=== PATIENT | male | born 1955 | race Caucasian/White ===

== ENCOUNTER 2017-05-27 14:20 | Inpatient (IN) | payer MEDICARE, MEDICAID ==
[~2017-05-27] VITALS: Ht 182.9 cm; Wt 110.0 kg
[2017-05-27] VITALS (9 sets, daily range): BP systolic 78–136; BP diastolic 41–107; PULSE 81–96; RESP 16–19; O2SAT 95–100
[~2017-05-27 14:20] MED LIST: METO200T32 PO; ONDA-53 PO; VANC125C3 PO
--- NOTE | 2017-05-27 14:27 | ED.REPORT ---
HPI-General Illness Date of Service May 27, 2017 ED Provider: The patient is a 62 year old male with history of end stage renal disease on dialysis MWF, atrial fibrillation not on Coumadin, CHF, hypertension, pancreatitis, alcohol abuse, and pancytopenia, who was brought to the emergency by EMS after he had ground level fall prior to arrival. The patient was trying to move his wheelchair when he slid out and fell, landing on his right knee. He did not hit his head or lose consciousness. At this time he complains of severe right knee pain. Medics report the patient complained of severe neck pain for about 5 minutes en route to the ED, the patient denies any new neck pain. He denies chest pain, abdominal pain, head pain, fever, chills or vomiting. The patient had 2 alcoholic drinks earlier today. Nursing Notes Stated Complaint: HYPOTENSIVE Nursing Notes Reviewed: Yes Allergies: Coded Allergies: rosuvastatin (Verified Adverse Reaction, Mild, 05/27/17) "Makes my arms and legs weak. It makes me feel bad" Scheduled Metoprolol Succinate ER (Metoprolol Succinate ER) 50 Mg Tab.er.24h 150 MG PO DAILY General Time Seen by MD: 14:26 Chief Complaint Other (fall) Hx Obtained From: Patient, EMS Arrived By: Ambulance Sudden in Onset?: Yes Onset Occurred: Just prior to arrival Symptom Duration: Since onset Location: : Knee right Quality: Painful Severity: Current: Severe Severity: Maximum: Severe Recent Healthcare: No recent hospitalization Similar Sx Previous: No Past Medical History Past Medical History 1. End-stage renal disease, on dialysis, Thursday, Thursday, Thursday with Dr. Burden. 2. Atrial fibrillation, not on Coumadin. 3. Hypertension. 4. Neuropathy. 5. History of pancreatitis. 6. History of colon polyps. 7. Gout. 8. H/O ETOH abuse, admit 01/26/15 for ETOH withdrawal 9. chronic and recurrent C. Diff. colitis 07/2015 10. chronic pancytopenia 11. history of anemia 12. CHF Reports: Depression Past Surgical History AV fistula A bone cyst removal in 2013 right hip in situ cannulated screw pinning s/p hip fracture in Oct 2015 Reports: Tonsillectomy Smoking History Former Smoker Social History Alcohol Use: In recovery Other Social History: Local resident Ambulatory Status Wheelchair Review of Systems Full Review of Systems Constitutional: Denies: Chills, Fever Cardiovascular: Denies: Chest pain GI: Reports: Diarrhea (chronic), Denies: Abdominal pain, Vomiting Musculoskeletal: Reports: Joint pain, Denies: Back pain, Neck pain Neurologic: Denies: Change LOC, Headache, Syncope Complete sys rev & neg: except as marked. Physical Exam Vital Signs Vital Signs Date Time Temp Pulse Resp B/P Pulse Ox O2 Delivery O2 Flow Rate FiO2 05/27/17 17:15 83 18 78/50 98 Room Air 05/27/17 17:00 84 17 86/55 05/27/17 16:25 94 17 87/66 05/27/17 15:15 81 17 79/48 99 05/27/17 14:45 89 17 83/41 98 05/27/17 14:20 36.0 83 16 136/107 95 Room Air Initial VS: Reviewed Head / Eyes: Atraumatic, Normocephalic, PERRL ENT: Mucous membranes moist, Conjunctiva normal, No scleral icterus Neck: Supple, Non-tender, Full range of motion Respiratory: Breath sounds normal, Clear to auscultation, No respiratory distress Cardiovascular: Regular rate & rhythm, Heart sounds normal, Intact distal pulses Abdomen / GI: Soft, Non-tender, No guarding, No rebound, No distention Lymphatic: No lymphadenopathy Extremities: Vascular intact, Neuro intact Skin: Warm, Dry, No cyanosis Neurologic: Alert, Oriented, Nonfocal Psychiatric: Mood/affect normal, Behavior normal, Normal thought content General/Constitutional: Awake, Alert, Well appearing Lower Extremity / Pelvis / MS: Neurologic intact, Vascular intact Bruising over his anterior right knee. Tenderness to his right anterior knee. Rectum / Perineum: Atraumatic, Blood - occult heme -, pest control technician passed, No gross blood Interpretation & Diagnostics Lab Results Interpretation Result Diagram: 05/27/17 1545 05/27/17 1510 Test 05/27/17 15:10 05/27/17 15:45 White Blood Count 3.7th/mm3 (3.8-10.1) Red Blood Count 1.47mil/mm3 (4.40-5.80) Mean Corpuscular Volume 108.8fL (81-100) Mean Corpuscular Hemoglobin 35.4pg (27.0-35.0) Mean Corpuscular Hemoglobin Concent 32.5% (32.0-37.0) Red Cell Distribution Width 14.9% (12.3-15.4) Platelet Count 161bil/L (150-400) Neutrophils (%) (Auto) 51.9% (40-74) Lymphocytes (%) (Auto) 34.3% (14-46) Monocytes (%) (Auto) 11.7% (4-12) Eosinophils (%) (Auto) 1.1% (0-5) Basophils (%) (Auto) 0.5% (0-3) Sodium Level 134mEq/L (134-144) Potassium Level 3.4mEq/L (3.5-5.2) Chloride Level 91mEq/L (97-108) Carbon Dioxide Level 22mmol/L (18-29) Blood Urea Nitrogen 25mg/dL (8-27) Creatinine 6.93mg/dL (0.76-1.27) Estimat Glomerular Filtration Rate 9mL/min (>59) Glucose Level 113mg/dL (60-99) Lactic Acid Level 6.3mmol/L (0.4-2.0) Calcium Level 8.1mg/dL (8.5-10.1) Magnesium Level 1.9mg/dL (1.6-2.6) Total Bilirubin 0.2mg/dL (0.0-1.2) Aspartate Amino Transf (AST/SGOT) 25U/L (0-50) Alanine Aminotransferase (ALT/SGPT) 12U/L (0-44) Alkaline Phosphatase 82U/L (25-160) Total Protein 6.7g/dL (6.4-8.4) Albumin 3.0g/dL (3.4-5.0) Alcohols 355mg/dL (0-10) Hemoglobin 7.4g/dL (13.8-17.2) Hematocrit 23.5% (41.0-50.0) Hold Purple Top Tube Received (Received) Hold Blue Top Tube Received (Received) Troponin T 0.187ug/L (0.0-0.011) Hold [place] Top Tube Received (Received) Hold [place] Top Tube Received (Received) ECG Interpretation ECG Interpretation: Atrial fibrillation with a rate of [address] T changes Time: 14:35 Interpreted by: ED physician X-Ray Chest Interpretation Chest Xray Interpretation: IMPRESSION: 1. Mild pleural thickening laterally in the left lung base redemonstrated with evaluation limited due to patient's overlying hand. 2. No definite acute traumatic abnormality. Dictated by: Ruddy Aguirre M.D. on 05/27/2017 at 15:06 Interpretation / Wet Read by: Interpret - Radiologist X-Ray Interpretation Xray Interpretation: IMPRESSION: 1. Probable minimally displaced fracture in the medial femoral condyle. 2. Small to moderate joint effusion. Dictated by: Ruddy Aguirre M.D. on 05/27/2017 at 14:59 X-Ray Ordered: Knee right Interpretation / Wet Read by: Interpret - Radiologist CT Head Interpretation IMPRESSION: 1. No acute intracranial hemorrhage. 2. Chronic small vessel ischemic changes and parenchymal volume loss. Dictated by: Ramiro Chavez M.D. on 05/27/2017 at 14:47 Study: Head CT no contrast Interpretation / Wet Read by: Interpret - Radiologist CT Abd / Pelvis Interpretation IMPRESSION: 1. Mild periportal edema. This is a nonspecific finding and can be associated with congestive heart failure and acute hepatitis. Please correlate clinically. 2. Cholelithiasis. No findings to suggest choledocholithiasis or acute cholecystitis. 3. Probable prior appendectomy. Dictated by: Georgia Armendariz M.D. on 05/27/2017 at 16:29 Study type: Abdominal CT IV contrast Interpretation / Wet Read by: Interpret - Radiologist Procedures Central Line Placement Central Line Placement Note: Right ultrasound guided IJ Procedure Performed by: ED physician Consent / Setup / Site Prep: Informed consent provided, Consent from patient , Time-out performed, Pulse oximeter applied, vehicle monitor technician applied, Standard surgical scrub, Max barrier precaution, Sterile drapes applied, Position Trendelenburg Skin Preparation Agent: Hibiclens - Chlorhexidine Local Anesthesia: Lidocaine w epi 1% Side / Location / Ultrasound: Internal jugular right Catheter / Lumen / Technique: Triple lumen, Seldinger technique Central Line Tip Location: Cath tip good position in the SVC Post-Procedure / Complications: Dressing placed, Tolerated procedure well, Patient stable Re-Eval/Medical Decision Med Decision/Clinical Course 62-year-old male history of end-stage renal disease on Thursday dialysis. Pt presents s/p groundlevel fall onto R knee. Hypotensive in field. Hypotensive in ED with MAPs in low 50s. Improved to low/mid 60s with 750mLs total IVFs. Lactate 6. Troponins elevated possibly d/t ESRD. CXR clear. Pt anuric and refused i/ocath. BAL 300s. CT no acute pathology. Chronic diarrhea. CT head no acute pathology. Admitted with sepsis unknown source, lactic acidosis, etoh intoxication, altered mental status. Admitted to ICU given hypotension. Central line placed. Broad spectrum abx given - vanco/zosyn/doxy. Source of Hx: Old records, EMS Time of Eval: 15:55 Re-Evaluation/Progress Note: Rechecked the patient. Time of Eval: 16:47 Re-Evaluation/Progress Note: Discussed plan for admission. All questions were addressed. Consultation #1: Consulted With: Hospitalist Requested Call at: 17:00 Cinder Pitman: Will see patient, Agrees with eval, Agrees with plan, Accepts admit Consultation #2: Referral / Consult Name: Gene Fajardo DO Consulted With: Orthopedic Call Returned at: 17:14 Cinder Pitman: Agrees with eval, Agrees with plan Note: Recommends long knee immobilizer. Counseled Regarding: Diagnosis, Lab results, Need for admission Discharge & Departure Primary Impression: Sepsis Sepsis type: sepsis due to unspecified organism Qualified Code: A41.9 - Sepsis, unspecified organism Additional Impressions: Fall Encounter type: initial encounter Qualified Code: W19.XXXA - Unspecified fall, initial encounter Fracture of medial condyle of femur Encounter type: initial encounter Fracture type: closed Fracture alignment : nondisplaced Laterality: right Qualified Code: S72.434A - Nondisplaced fracture of medial condyle of right femur, initial encounter for closed fracture Altered mental status Altered mental status type: unspecified Qualified Code: R41.82 - Altered mental status, unspecified Disposition: ADMITTED TO HOSPITAL Discharge Condition All VS Reviewed: Yes Condition: Stable Referrals: Spike Mckeon DO (PCP) Crit Care Except Billable Proc Time Spent: 75-104 minutes Services Performed: Patient management by me, Time spent at bedside, Reviewing test results, Reviewing imaging, Discussing patient care, Documentation in record Scribe Attestation Portions of this note were transcribed by Lydia Manuel. I, Dr. Zhu personally performed the history, physical exam and medical decision-making; I reviewed and confirmed the accuracy of the information in the transcribed note. Signed by: Ronaldo Young, 05/27/2017 at 1800. copies to: Spike Mckeon Ben M MD May 27, 2017 14:27 Lydia Manuel May 27, 2017 14:35
--- NOTE | 2017-05-27 15:08 | DRSVH ---
PROCEDURE: X-RAY RIGHT KNEE, THREE VIEWS ([id number]) INDICATIONS: fall TECHNIQUE: 3 views of the knee were acquired. COMPARISON: None. FINDINGS: Bones: There is diffuse osteopenia limiting evaluation. There is a lucency within the medial femora l condyle with suggestion of a cortical step-off suspicious for a relatively nondisplaced fracture. Soft tissues: There is a small to moderate-sized joint effusion. IMPRESSION: 1. Probable minimally displaced fracture in the medial femoral condyle. 2. Small to moderate joint effusion. Dictated by: Ruddy Aguirre M.D. on 05/27/2017 at 14:59 Approved by: Ruddy Aguirre M.D. on 05/27/2017 at 15:06
--- NOTE | 2017-05-27 15:10 | DRSVH ---
PROCEDURE: X-RAY CHEST ONE VIEW, PORTABLE ([id number]) INDICATIONS: fall TECHNIQUE: One view of the chest was acquired. COMPARISON: [facility], CR, XR CHEST 1VW (PORTABLE), 08/13/2016, 21:52. FINDINGS: Surgical changes and devices: None. Lungs and pleura: The lateral left lung base is partially obscured by patient's overlying hand. No definite pleural effusions or pneumothorax. There is mild pleural thickening in the lateral left jennifer g base redemonstrated. Mediastinum: Mediastinal contours appear normal. Heart size is borderline enlarged. Bones and chest wall: No suspicious bony lesions. No displaced fractures identified. Overlying sof t tissues appear unremarkable. IMPRESSION: 1. Mild pleural thickening laterally in the left lung base redemonstrated with evaluation limited du e to patient's overlying hand. 2. No definite acute traumatic abnormality. Dictated by: Ruddy Aguirre M.D. on 05/27/2017 at 15:06 Approved by: Ruddy Aguirre M.D. on 05/27/2017 at 15:09
[2017-05-27 15:32] LABS: BASOPHILS % (AUTO) 0.5 % (0-3); EOSINOPHILS % (AUTO) 1.1 % (0-5); MONOCYTES % (AUTO) 11.7 % (4-12); Mean Corpuscular Hemoglobin 35.4 pg (27.0-35.0); Mean Corpuscular Volume 108.8 fL (81-100); NEUTROPHILS % (AUTO) 51.9 % (40-74); Platelet Count 161 bil/L (150-400)
[2017-05-27] MEDS ORDERED: 0.9% Sodium Chloride 250 ML IV ONE ×3 (15:40→22:20)
[2017-05-27 15:51] LABS: Magnesium 1.9 mg/dL (1.6-2.6)
--- NOTE | 2017-05-27 15:51 | DRSVH ---
PROCEDURE: CT BRAIN WITHOUT CONTRAST ([id number]) INDICATIONS: altered mental status TECHNIQUE: Noncontrast 4.5 mm thick angled axial sections acquired from the foramen magnum to the vertex, with c oronal reformats. COMPARISON: [facility], CT, CT BRAIN WO CON, 08/13/2016, 22:43. FINDINGS: Image quality: Diagnostic. Brain: There is no acute intra-axial or extra-axial hemorrhage. No extra-axial fluid collection is i dentified. There is no midline shift or mass effect. The orbits are grossly unremarkable. No large areas of diffusely decreased attenuation are evident within the brain to suggest diffuse cer ebral edema. Scattered areas of low-attenuation within the periventricular white matter of the supra tentorial brain have a similar pattern to the prior study. The ventricles and cortical sulci are mildly prominent. Bones: Calvarium and visualized facial bones are grossly intact. The imaged paranasal sinuses and m astoid air cells are clear. IMPRESSION: 1. No acute intracranial hemorrhage. 2. Chronic small vessel ischemic changes and parenchymal volume loss. Dictated by: Ramiro Chavez M.D. on 05/27/2017 at 14:47 Approved by: Ramiro Chavez M.D. on 05/27/2017 at 14:49
[2017-05-27] MEDS ORDERED: METO-272 PO (16:38)
--- NOTE | 2017-05-27 16:40 | DRSVH ---
PROCEDURE: CT ABDOMEN AND PELVIS WITH CONTRAST ([id number]) INDICATIONS: abd pain TECHNIQUE: After the administration of intravenous contrast, 5 mm thick sections acquired from the diaphragm to the symphysis. 5 mm coronal and sagittal reformats were acquired. For radiation dose reduction, the following was used: automated exposure control, adjustment of mA and/or kV according to patient laz paul. COMPARISON: [facility], CT, CT CHEST ABD PELVIS W CON, 08/18/2015, 10:50. FINDINGS: Image quality: Excellent. ABDOMEN: Lung bases: Mild pulmonary scarring is present at the left lung base. The lungs are otherwise clear. Heart size is enlarged. Solid organs: Liver and spleen are normal in size and enhancement. There is mild periportal edema. M ultiple subcentimeter calcified gallstones are layered in the gallbladder fundus. No gallbladder wall thickening or pericholecystic fluid. Biliary system is non dilated. Pancreas enhances normally. No adrenal nodules. 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 Peritoneum and bowel: Bowel loops demonstrate normal wall thickness and caliber. The appendix is not visualized; however surgical clips are present in the region of the cecum in the lower quadrant sugg esting prior appendectomy. No free fluid or air. Nodes and vessels: No retroperitoneal or mesenteric adenopathy by size criteria. Aorta and inferior vena cava are normal in size. There are scattered atheromatous calcifications throughout the aorta and iliac arteries bilaterally. Miscellaneous: No ventral hernias. PELVIS: Genitourinary: Bladder is decompressed. Miscellaneous: No inguinal adenopathy. There is a small fat containing right inguinal hernia. Mild s tranding overlies the left inguinal canal. Bones: No suspicious bony lesions. No vertebral body compression fractures. Right hip arthroplasty is grossly intact. IMPRESSION: 1. Mild periportal edema. This is a nonspecific finding and can be associated with congestive heart f ailure and acute hepatitis. Please correlate clinically. 2. Cholelithiasis. No findings to suggest choledocholithiasis or acute cholecystitis. 3. Probable prior appendectomy. Dictated by: Georgia Armendariz M.D. on 05/27/2017 at 16:29 Approved by: Georgia Armendariz M.D. on 05/27/2017 at 16:38
[2017-05-27] MEDS ORDERED: Tobramycin per Pharmacist XX ONE (16:45)
[2017-05-27] MEDS ORDERED: Piperacillin-Tazo 3.375 Gm Inj 3.375 GM in Dextrose 5% Minibag Plus 50 ML IV ONE (16:45)
[2017-05-27] MEDS ORDERED: Vancomycin Dose per Pharmacist XX ONE (16:45)
[2017-05-27] MEDS ORDERED: Doxycycline Inj 100 MG in Dextrose 5% 100 ML IV ONE (16:45)
[2017-05-27 16:54] LABS: TROPONIN T 0.187 ug/L (0.0-0.011)
[2017-05-27] MEDS ORDERED: Ondansetron 2 mg/mL 2 mL Inj IVPUSH PRN (18:25)
--- NOTE | 2017-05-27 18:36 | PCM.HPMED ---
Subjective Date of Service May 27, 2017 Primary Provider: Admitting Physician: Arsh Flannery MD Primary Care Physician: Spike Mckeon DO Attending Physician: Arsh Flannery MD Admit Status: From the Emergency Department, Full Admit, Admit to [facility] Team, Critical Care Chief Complaint: Fall, syncopal episode. Right knee pain. History of Present Illness: This is a 62-year-old woman with known history of end-stage renal disease. He was due for dialysis today. He had a witnessed fall which may have been syncopal at which time his caregiver called 911. He was found to be hypotensive and was fluid resuscitated with 250 mg saline. He was brought to the emergency department. There he complained really only of feeling flulike symptoms for 2 days as well as having right knee pain. X-ray did reveal a right knee femoral condyle fracture and a splint was applied. The patient was afebrile but did have a profound lactic acidosis. He had a mild leukopenia as well. Chest x-ray and CT were unremarkable. He does have chronic diarrhea. He denies fevers or chills. He also denies dyspnea and had normal saturations and respiratory effort. He was treated empirically for possible sepsis with an unclear source. The patient does have a left arm fistula which has been used for several years. He has had a map of 55 in the ED after a second bolus of 250 mils of saline. At this point a right IJ is going to be placed in the emergency physician under ultrasound guidance. He denies any confusion. He does have alcohol on his breath andhaving 2 drinks today. He is unclear as to how much he drinks on a daily basis but denies withdrawal symptoms. Blood alcohol level is 355. Review of Systems: He notes myalgias and general fatigue. He denies hallucinations or confusion. No headache. He denies neck or back pain. He does make a small amount of urine but denies any dysuria or hematuria. No skin rash or lesions. No blood in the stool. All else reviewed and otherwise unremarkable except as noted in history of present illness. Allergies Coded Allergies: rosuvastatin (Verified Adverse Reaction, Mild, 05/27/17) "Makes my arms and legs weak. It makes me feel bad" Home Medications Metoprolol Succinate ER (Metoprolol Succinate ER) 50 Mg Tab.er.24h 150 MG PO DAILY PMH 1. End-stage renal disease, on dialysis, Thursday, Thursday, Thursday with Dr. Burden. 2. Chronic Atrial fibrillation, not on Coumadin. 3. Essential Hypertension. 4. Peripheral diabetic Neuropathy. 5. History of pancreatitis. 6. History of colon polyps. 7. Gout. 8. ETOH abuse, admit 01/26/15 for ETOH withdrawal 9. chronic and recurrent C. Diff. colitis 07/2015 10. chronic pancytopenia 11. history of anemia 12. CHF, unspecified. 13. Depression Surgical History AV fistula A bone cyst removal in 2013 right hip in situ cannulated screw pinning s/p hip fracture in Oct 2015 Reports: Tonsillectomy Family History Unremarkable per his report including diabetes Social History Occupation: non- Hx Alcohol Use: Yes ("2 SINGLE SHOTS OF VODKA TODAY".) Hx Substance Use: No Hx Tobacco Use: No Smoking Status: Former Smoker Living Arrangement: Alone Exam Vital Signs Vital Sign - Last Date Time Temp Pulse Resp B/P Pulse Ox O2 Delivery O2 Flow Rate FiO2 05/27/17 17:15 83 18 78/50 98 Room Air 05/27/17 14:20 36.0 Exam Oriented 3. No distress. Fluent speech. Normal affect. I will call him broth. Normal skull. Normal nose and ears. Anicteric sclera, symmetric pupils Oropharynx is unremarkable, no facial droop. Neck is supple, normal thyroid. No adenopathy. Lungs are clear, normal effort rate. Heart is regular without murmur gallop or rub. Abdomen soft, nondistended or tender. Extremities are free of pedal edema. Left arm fistula Good radial and pedal pulses. Skin is free of rash, lesions. No petechiae or ecchymosis. Joints are grossly normal. Right knee is somewhat swollen and tender medially. Cranial nerves are grossly normal. Motor strength is normal in all extremities. Normal muscular tone. Lab and Diagnostics Result Diagram: 05/27/17 1545 05/27/17 1510 X-Rays, CTs and MRIs Chest x-ray unremarkable Abdomen pelvis CT unremarkable Head CT unremarkable. Right knee x-ray reveals a probable medial femoral condyle nondisplaced fracture with a knee effusion Assessment & Plan Sepsis, source unclear. Suspect a possible cystitis or pyelonephritis. POA. Plan is to fluid resuscitated with saline boluses to 250 mils a time for a map greater than 65. Have obtained IV access with a right IJ. We will use norepinephrine as required. We will swab garcía rule out MRSA and cover with empiric cefepime and vancomycin. Lactic acidosis, POA. We will follow his lactic acidosis serially and give fluid resuscitation guided by map. Alcohol intoxication, POA. The patient is at high risk for alcohol withdrawal, will enact CIWA protocol. End-stage renal disease, POA. The patient was due for dialysis today, he has no hyperkalemia or fluid overload. We will plan on dialysis tomorrow. We will also watch fluid resuscitation. Closely to avoid fluid overload. Probable chronic anemia related to kidney disease, POA. His initial hematocrit was low but a repeat was at 25. We will follow with a.m. hematocrit. He was guaiac negative in the emergency department. Hypertension, POA. Follow clinically resume usual medications after med reconciliation is obtained. Patient is full resuscitation, confirmed the time of admit Patient is admitted inpatient status, length of stay of over 2 nights is expected Pain Evaluation: Adequate Pain Control Resuscitation Status: CPR: Attempt Resuscitation Time spent 45 minutes critical care time Arsh Flannery MD May 27, 2017 18:36
--- NOTE | 2017-05-27 19:34 | DRSVH ---
PROCEDURE: X-RAY CHEST ONE VIEW ([id number]) INDICATIONS: CENTRAL LINE PLACEMENT TECHNIQUE: One view of the chest was acquired. COMPARISON: [facility], CR, XR CHEST 1VW (PORTABLE), 05/27/2017, 14:34. FINDINGS: Surgical changes and devices: There is a right internal jugular central venous catheter with the tip projecting in the upper SVC. Lungs and pleura: No pleural effusions or pneumothorax. No focal consolidation. Diffuse interstitial and ground glass opacities, probably scarring Mediastinum: Mediastinal contours appear normal. Heart size is normal. Bones and chest wall: No suspicious bony lesions. Overlying soft tissues appear unremarkable. IMPRESSION: Status post placement of right internal jugular central venous catheter with the tip proj ecting in the upper SVC. No pneumothorax. Dictated by: Arnie Avila M.D. on 05/27/2017 at 19:31 Approved by: Arnie Avila M.D. on 05/27/2017 at 19:32
[2017-05-27] MEDS: Vancomycin Dose per Pharmacist XX SCH (19:52)
--- NOTE | 2017-05-27 20:01 | PCM.CONPHA ---
Assessment/Plan Assessment/Plan Pharmacy Kinetic Dosing Vancomycin Indication: SEPSIS OF UNKNOWN CAUSE Vanc goal trough: 15-20mcg/mL Pt wt:114.4 kg Other ABX: CEFEPIME Cultures: Blood/MRSA PENDING SCr: 6.93mg/dL Assessment/Plan: - Loading dose of [id number] mg given in ED for (18mg/kg dosing) -SHOULD BE RECEIVING DIALYSIS TOMORROW 05/28/17 SO WILL DRAW A RANDOM TROUGH LEVEL @0500 AND FLOOR PHARMACIST WILL DOSE APPROPRIATE AFTER SESSION. Pharmacy appreciates consult and will continue to monitor. Sandee Nelson PharmD May 27, 2017 20:01
[2017-05-27] MEDS ORDERED: Insulin Human REGular Inj 100 UNIT in 0.9% Sodium Chloride-Pha MIX 100 ML IV SCH (20:23)
[2017-05-27 20:24] LABS: APPEARANCE,URINE CLEAR (CLEAR,HAZY); COLOR,URINE YELLOW (YELLOW); OCCULT BLOOD,URINE SMALL (NEGATIVE); PH,URINE 6.5 (5.0-8.0); UROBILINOGEN,URINE NORMAL (NORMAL)
[2017-05-27] MEDS: Multivit-Miner-Folic Acid-Iron Tablet PO SCH ×2 (20:28→20:44)
[2017-05-27] MEDS: Lactated Ringer's 1,000 ML IV SCH ×2 (20:29→20:41)
[2017-05-27] MEDS: 0.9% Sodium Chloride 1,000 ML IV SCH (20:32)
[2017-05-27] MEDS: Cefepime Inj 1,000 MG in Dextrose 5% Minibag Plus 50 ML IV SCH (20:41)
[2017-05-27] MEDS ORDERED: Norepineph 8,000 mCg/250 mL NS 8,000 MCG in IV Premix 1 EACH IV SCH (20:53)
[2017-05-27] MEDS ORDERED: OMEP20CA11 PO (21:15)
[2017-05-27] MEDS ORDERED: FOLI1TAB18 PO (21:15)
[2017-05-27] MEDS ORDERED: FRSM80T PO (21:15)
--- NOTE | 2017-05-27 22:27 | NUR ---
Admission to CCU Pt admitted to room 2011 from ER at change of shift (1914). Pt angry upon arrival to floor stating right knee pain. Pt transferred to new bed from [facility] with 3 persons and a slider board. Admission assessments completed by prior RN/admission RN. Med Rec completed by this RN with assistance from [employer] and the patient being able to verify a few medications. Pt confused. Pt states he was already admitted to the hospital yesterday and was asking why he was being moved. Pt alert to self and place. Pt denies alcohol use today but acknowledges 2 shots of vodka yesterday to celebrate the 26 of May. ETOH level positive in ER. Doxycycline and Vancomycin infusing concurrently into right AC IV. Right triple IJ catheter saline locked. Central Line adhered with dressing and tape but device was not secured in Stat Lock but was underneath the dressing with the tubes running through it. MD made aware. IV therapy not presently at the hospital. Resident MD secured line in stat lock and secured above the dressing. Message left for IV therapy. Pt has hives and redness locally to Right AC IV site where both antibiotics were infusing. MD made aware. Dose of IV Benadryl administered per MD order. MRSA swab collected along with In-and-Out catheter for urine specimen. Bladder drained of 150ml of urine. Blood sugar checked resulting value of 402. MD made aware and NDKA insulin gtt ordered. Order subsequently DC'ed as upon recheck from CVC that blood sugar was 127 and then 117 upon washing the patient's hands and rechecking a finger stick. Pt smells strongly of alcohol. Left upper arm Fistula has strong thrill and bruit. NS bolus of 250ml x2 administered to maintain MAP>65. Norepinephrine gtt on standby for subsequent hypotension.
[2017-05-28] VITALS (7 sets, daily range): BP systolic 105–130; BP diastolic 63–85; PULSE 88–123; RESP 18–23; O2SAT 94–100
[2017-05-28] MEDS ORDERED: Vancomycin Serum Trough XX ONE (05:00)
[2017-05-28] MEDS: Lactated Ringer's 1,000 ML IV SCH ×3 (05:11→21:03)
[2017-05-28 06:25] LABS: BASOPHILS % (AUTO) 0.5 % (0-3); EOSINOPHILS % (AUTO) 0.5 % (0-5); MONOCYTES % (AUTO) 11.3 % (4-12); Mean Corpuscular Hemoglobin 33.6 pg (27.0-35.0); Mean Corpuscular Volume 104.5 fL (81-100); NEUTROPHILS % (AUTO) 61.9 % (40-74); Platelet Count 85 bil/L (150-400)
[2017-05-28 06:49] LABS: Magnesium 1.6 mg/dL (1.6-2.6); Phosphorus 5.3 mg/dL (2.5-4.9)
[2017-05-28] MEDS: Cefepime Inj 1,000 MG in Dextrose 5% Minibag Plus 50 ML IV SCH (08:21)
[2017-05-28] MEDS: Multivit-Miner-Folic Acid-Iron Tablet PO SCH (08:42)
[2017-05-28] MEDS: Famotidine Inj 20 MG in IV Premix 1 EACH IV SCH (08:42)
[2017-05-28] MEDS: Vancomycin Dose per Pharmacist XX SCH (08:43)
[2017-05-28] MEDS ORDERED: Sodium Chloride LOK Flush 10 mL Syringe IVFLUSH PRN ×2 (09:50)
--- NOTE | 2017-05-28 10:18 | PCM.PHAPRO ---
Progress Date of Service: May 28, 2017 Vancomycin dosing Scr = 7.47, pt on dialysis. WBC = 3.6, lactic acid = 4.8, procal = 0.65, vanco random level = 23.3. Pt continues on IV vancomycin and cefepime for sepsis, possible urinary source. Predialysis vancomycin random level elevated above 20 mcg/mL today, therefore will not give any IV vancomycin dose today. Pt having HD today. Next HD session uncertain, ordered vancomycin random level with am labs daily x 3 days. Next IV vancomycin dose to be given when pre-dialysis level drops below 20mcg/ mL. Pharmacy will follow this pt's vancomycin therapy. Melinda Serna S PharmD May 28, 2017 10:18
[2017-05-28] MEDS: Thiamine Inj 200 MG in Dextrose 5% 50 ML IV SCH (10:35)
--- NOTE | 2017-05-28 11:42 | DRSVH ---
[facility] [address] [place] [address] Echocardiogram Report Name: HUGO GIRALDO MStudy Date : 05/28/2017 Height: 72 in Hospital Exam Location: [facility] Weight: 25 3 lb Gender: Male BSA: 2.4 m2 : 1955 Age: 62 yrs BP: 102/64 mmHg Reason For Study: SEPSIS, ANEMIA History: end-stage renal disease, chronic afib, HTN, ETOH abuse Ordering Physician: ABDELRAHMAN [facility] Performed By: Megan Collins Referring Physician: Raudel Mares Interpretation Summary Left ventricular size is at the upper limits of normal. The ejection fraction is estimated to be 60-65%. LV wall motion is grossly normal. LVEF has not changed significantly since prior study. The right ventricle is borderline dilated. Grossly normal systolic function. The right ventricular systolic pressure is estimated at least 36 mmHg assuming a right atrial pressure of 15 mm Hg. RVSP is similar to prior study. Both atria are severely dilated. There is no significant valvular heart disease. Both MR and TR have decreased since prior study. The ascending aorta is mildly enlarged. Procedure: A two-dimensional transthoracic echocardiogram with color flow and Doppler was performed. The study quality was technically adequate. A contrast injection of Definity was performed to improve assessment of LV function. Comparison is made with the echocardiogram of 10/26/2015. The patient was in atrial fibrillation with heart rates between 110-132 bpm during the exam. Left Ventricle: Left ventricular size is at the upper limits of normal. There is normal left ventricular wall thickness. There is no thrombus. Left ventricular systolic function is normal. The ejection fraction is estimated to be 60-65%. LV wall motion is grossly normal. Diastolic function could not be accurately assessed due to atrial fibrillation. Right Ventricle: The right ventricle is borderline dilated. Grossly normal systolic function. Atria: Both atria are severely dilated. There is no Doppler evidence for an interatrial shunt. Mitral Valve: There is mild to moderate mitral annular calcification. There is trace mitral regurgitation. Aortic Valve: The aortic valve is normal in structure and function. The aortic valve is slightly calcified. No aortic regurgitation is present. Tricuspid Valve: The tricuspid valve is normal in structure and function. There is a trace or physiologic amount of tricuspid regurgitation. The right ventricular systolic pressure is estimated at least 36 mmHg assuming a right atrial pressure of 15 mm Hg. Pulmonic Valve: The pulmonic valve is not well seen, but is grossly normal. There is no significant valvular heart disease. Great Vessels: The aortic root is normal size. The ascending aorta is mildly enlarged. The IVC is dilated (diameter is greater than 2.1 cm) and it collapses less than 50% with a sniff. This suggests a high right atrial pressure of 15 mm Hg. Pericardium/ Pleura There is no pericardial effusion. There is an anterior echo-free space consistent with a fat pad. MMode/2D Measurements & Calculations LVIDd: 5.8 cm LA dimension: 4.1 cm RA long axis LVOT diam LVIDs: 3.8 cm FS: 35.0 % LA A2 area: 34.9 cm RA area AoV Opening EPSS: 0.71 cm LA A4 area: 36.0 cm IVSd: 0.83 cm LA length (vol): 7.6 cm: 30.0 cm Ao root diam LVPWd: 1.0 cm LA vol: 140.3 ml RA vol LA vol index : 109.ml Aortic Jxn RA : 46.4 mm2 asc Aorta IVC diam: 2.4 cm Diam: 3.6 cm LV dewitt. diameter/BSA LV sys. diameter/BSA TAPSE: 2.1 cm (cm/m^2): 2.5 (cm/m^2): 1.6 Doppler Measurements & Calculations Ao V2 max MV E max lukas Med Peak E' Lukas TR max lukas : 173.1 cm/sec : 118.6 cm/sec : 229.3 cm/sec Ao max P.0 mmHg E/E' med: 11.1 TR max PG Ao mean P.3 mmHg MVA(VTI): 3.5 cm2 Lat Peak E' Lukas : 21.0 mmHg LVOT Max Lukas PA V2 max : 93.4 cm/sec E/E' lat: 10.7 : 119.5 cm/sec E/e' average PA mean PG JEAN CARLOS(I,D): 1.9 cm sev ratio: 0.58 PA Accel Time : 0.10 sec MV V2 mean Ao V2 mean LV V1 max PG PA V2 mean : 73.3 cm/sec : 117.4 cm/sec : 76.2 cm/sec MV mean P.5 mmHg Ao V2 VTI: 27.8 cmLV V1 VTI: 16.0 cm MV V2 VTI: 15.2 cm MV dec time: 0.14 sec JEAN CARLOS(V,D): 1.8 cm2 JEAN CARLOS indexed to BSA (cm^2/m^2): 0.82 Reading Physician:SANTIAGO
--- NOTE | 2017-05-28 12:55 | CONS ---
[address] [address] CONSULTATION REPORT PATIENT: HUGO GIRALDO : 1955 MR#: [id number] ADMIT: 05/27/2017 JOB ID: [id number] NEPHROLOGY CONSULTATION: DATE OF SERVICE: 05/28/2017 REQUESTING PHYSICIAN: Arsh Flannery MD REASON FOR CONSULTATION: Management of end-stage renal disease. CHIEF COMPLAINT: Status post fall. PRESENT ILLNESS: This is a 62-year-old, male with significant past medical history of end-stage renal disease, alcohol abuse, hypertension, chronic atrial fibrillation, who was brought to the emergency department after episode of syncope and ground level fall. The patient was trying to move his wheelchair when he slipped and fell. Apparently he landed on the right knee. The patient did not have any head injury. He reported to me that he likely passed out. However, per the emergency department note, he stated that he did not lose consciousness. In any case, the patient was brought to the emergency department for further investigation. Of note, the patient earlier had two drinks prior to the admission earlier this morning prior to the day of the admission. He missed dialysis yesterday. Upon arrival, his blood pressure was 78/50. He received normal saline bolus. Septic workup was done. He was also started on broad-spectrum IV antibiotics including vancomycin, cefepime, doxycycline and Zosyn. CT abdomen and pelvis showed mild periportal edema and cholelithiasis. CT head did not show any acute intracranial hemorrhage. X-ray did not comment on the obvious lung infiltrates but showed mild pleural thickening laterally in the left lung base. Initial alcohol level was 355 mg/dL. He is a patient of Dr. Burden. He is dialyzed at [facility] in [place], every Thursday, Thursday, and Thursday. Renal service was consulted to resume dialysis while he is hospitalized. PAST MEDICAL HISTORY: 1. End-stage renal disease, on hemodialysis for almost two years. He has left AV fistula. 2. Chronic atrial fibrillation. 3. Hypertension with hypertensive nephrosclerosis. 4. Hyperkalemia. 5. Alcohol abuse. 6. Recurrent C. diff colitis. 7. Gout. 8. Right femoral hip fracture. 9. Morbid obesity. 10. Pancytopenia. 11. Anemia of chronic kidney disease. 12. Renal osteodystrophy. 13. Dyslipidemia. PAST SURGICAL HISTORY: 1. Status post AV fistula creation. 2. Hip fracture, status post ORIF. 3. Tonsillectomy. 4. Bone cyst removal. FAMILY HISTORY: Positive for type 2 diabetes, colon cancer, coronary artery disease, and dyslipidemia. SOCIAL HISTORY: He is a remote smoker. Denies any substance abuse. However he has history of alcohol abuse with history of alcohol withdrawal. ALLERGIES: ROSUVASTATIN. MEDICATIONS: Reviewed. REVIEW OF SYSTEMS: Fourteen point review of system was performed. PHYSICAL EXAMINATION: Vitals: Temperature 37.1, pulse 120, respiratory 21, blood pressure 115/74. General appearance: Awake, alert, oriented x3. In no acute distress. HEENT: Atraumatic. Moist mucous membranes. PERRLA. No pallor. No jaundice. No JVD. No lymphadenopathy. No thyroid enlargement. Heart: Regular rhythm. Normal S1, S2. No rubs or gallops. No murmur. Lungs: Decreased breath sounds at bases. No wheezing. No rhonchi. Abdomen: Soft, obese, active bowel sounds. Nontender. Nondistended. Extremities: No edema, cyanosis or clubbing of fingers. Left AV fistula with good thrill and bruit. Skin no rash. No excoriation. LABORATORY DATA: Hemoglobin 7.5, WBC 3.6, platelets 85. Sodium 136, potassium 4.5, chloride 94, bicarb 20, BUN 34, creatinine 7.47. Lactate of 4.8, calcium 7.6, phosphorus 5.3, troponin 0.193, procalcitonin 0.65. ASSESSMENT: 1. Hypotension, suspected sepsis. 2. Status post fall and possible syncope. 3. Alcohol intoxication. 4. Lactic acidosis. 5. End-stage renal disease, on hemodialysis every Thursday, Thursday, and Thursday. 6. History of alcohol abuse. 7. Pancytopenia possibly related to chronic liver disease. 8. Chronic atrial fibrillation. Not on anticoagulant. 9. History of hypertension with hypertensive nephrosclerosis. PLAN: 1. Pending for finalized cultures. Continue broad-spectrum IV antibiotics. 2. We will arrange for hemodialysis today of 3-1/2 hours. Given hypotension, we will not remove any fluid today. His next dialysis will be done again tomorrow. Thank you for allowing me to participate in the care of your patient. We will monitor along with you. EUGENIED
--- NOTE | 2017-05-28 14:02 | NUR ---
Social Work: Initial Assessment D: Per EMR review, pt is a 62 year old male admitted for Sepsis, Anemia. Pt is Medicare with DSHS supplement; pt has no LTC insurance or VA benefits. PCP is Spike Mckeon. Morgan Perez, son, is NOK. Advanced directives completed- PASSENGER ELEVATOR OPERATOR requested copy for chart. Readmit score is high, 3/8. PASSENGER ELEVATOR OPERATOR met with the patient at bedside. Sw role explained and contact info provided. Pt lives in [place], alone. Pt lives on the main level of a two story home with 0 steps to enter. Pt uses a wheelchair for mobility and is I with his own transfers. Pt occasionally uses a walker for ambulation in the community when he cannot take his w/c. Pt has 104 hours of [employer] who assist him iwth meal prep, shopping and cleaning/chores. Pt has had [facility] in the past but is not currently open for services. Pt also had a stay at [facility] for rehab in the past. Pt anticipates discharging back home when medically stable and states he will need [facility] transportation home. Pt states he arrived via EMS and has used his transportation benefit in the past. A: Pt who lives at home, alone. P: Evolving; Anticipate pt to discharge home. PASSENGER ELEVATOR OPERATOR will continue to follow to assess for d/c needs and coordinate discharge referrals as ordered by . AYESHA Newton Addendum: 05/28/17 at 1408 by BEBE SALVADOR Amended: Links added.
--- NOTE | 2017-05-28 14:10 | PCM.PNMED ---
Subjective Date of Service May 28, 2017 Subjective Felix Perez is a 62 year old man with past medical history significant for ESRD on HD MWF who presented from dialysis due to hypotension and syncopal episode. Overnight: The patient had a notably elevated blood glucose and was briefly placed on an insulin drip. Today: The patient is complaining about pain in his knee as well as hunger. He denies any fevers, chills, or shortness of breath. The remainder of ROS is negative except as noted above. Exam Vital Signs Vital Sign - Last Date Time Temp Pulse Resp B/P Pulse Ox O2 Delivery O2 Flow Rate FiO2 05/28/17 08:40 121 05/28/17 08:00 37.1 21 115/74 97 Room Air Intake and Output 05/27/17 05/27/17 05/28/17 Cumulative From/Thru 15:00 23:00 07:00 05/27/17 14:20 - 05/28/17 06:28 Intake Total 808 ml 2141 ml 2949 ml Output Total 120 ml 250 ml 370 ml Balance 688 ml 1891 ml 2579 ml Intake Oral 0 ml 0 ml IV Total 808 ml 1841 ml 2649 ml Packed Cells 300 ml 300 ml Output Urine Total 120 ml 250 ml 370 ml # Bowel Movements 0 0 0 Exam Oriented 3. No distress. Fluent speech. Normal affect. Normal skull. Normal nose and ears. Anicteric sclera, symmetric pupils. Oropharynx is unremarkable, no facial droop. Neck is supple, normal thyroid. No adenopathy. Lungs are clear, normal effort rate. Heart is regular without murmur gallop or rub. Abdomen soft, nondistended or tender. Extremities are free of pedal edema. Left arm fistula Good radial and pedal pulses. Skin is free of rash, lesions. No petechiae or ecchymosis. Joints are grossly normal. Right knee is somewhat swollen and tender medially. Cranial nerves are grossly normal. Motor strength is normal in all extremities. Normal muscular tone. Aggravated. IVs and Medications Medications Reviewed: Medications were reviewed in detail Lab and Diagnostics Result Diagram: 05/28/17 0600 05/28/17 0600 X-Rays, CTs and MRIs Chest x-ray unremarkable Abdomen pelvis CT unremarkable Head CT unremarkable. Right knee x-ray reveals a probable medial femoral condyle nondisplaced fracture with a knee effusion Assessment & Plan Felix Perez is a 62 year old man with past medical history significant for ESRD on HD MWF who presented from dialysis due to hypotension and syncopal episode. Hypotension, unlikely to be truly septic. Present on admission, resolved. No obvious source identified. -Fluid resuscitated. NE titrated off. Will continue antibiotics for now. Lactic acidosis, POA. -We will follow his lactic acidosis serially with fluid resuscitation guided by map. Alcohol intoxication, POA. -The patient is at high risk for alcohol withdrawal. CIWA protocol, cognizant of renal failure. End-stage renal disease, POA. -Dr. David consulted. Dialysis tomorrow. Probable chronic anemia related to kidney disease, POA. -His initial hematocrit was low but a repeat was at 25. Will follow hematocrit. -He was guaiac negative in the emergency department. Hypertension, POA. -Follow clinically resume usual medications when appropriate. Patient is full resuscitation, confirmed the time of admit Disposition: Anticipate patient will be in the hospital for 1-2 more days. VTE Mechanical Devices: Intermittant Pneumatic CD Resuscitation Status: CPR: Attempt Resuscitation Attending Statement Patient seen and examined with house staff. Agree with all attached documentation. Shanel Gomez DO May 28, 2017 13:14 Arsh Flannery MD May 28, 2017 17:07
[2017-05-28] MEDS: 0.9% Sodium Chloride 1,000 ML IV SCH ×2 (14:23→22:28)
--- NOTE | 2017-05-28 14:39 | NUR ---
Pain.. Pt had numerous complaints re hunger, being NPO, and R knee pain. Seen by MD and diet ordered. Pt did have nausea while eating. Zofran given and this was effective. No emesis noted. Med with Morphine for knee pain and this brought his pain from a 9 down to painfree. Pt remains in afib.. rates 113 - 120's..MD aware. Taken to [facility] for dialysis. [facility] in [facility] notified that client in an inpt.
--- NOTE | 2017-05-28 18:08 | NUR ---
Dialysis note: 3 1/2 hrs tx Zero net UF TYRONE fistula, accessed w/ no problems Pls see DTR for VS details Qb 400 Heparin given O2 @ 2L via NC on Last hr of tx, PRN Morphine 2 mg IV given for pain Tolerated tx, slept at intervals Fistula needle sites clotted w/in 10 min Stable condition at end of tx Report given to Aileen CHACKO
--- NOTE | 2017-05-28 18:10 | NUR ---
MOC Report While being dialyzed, pt. reported that he had pain to his right leg, rated 9/10. Pt. was given 2mg IV morphine with good relief. IV Abx. was completed, primarily line re-started to infuse NS at 50ml/hr per orders. Last set of vitals and pt. status reported back to primary RN, Shelli Coronel.
--- NOTE | 2017-05-28 18:41 | NUR ---
Patient returned from MOC to [facility] room 2011 post dialysis.
[2017-05-28] MEDS ORDERED: Cefepime Inj 1,000 MG in Dextrose 5% Minibag Plus 50 ML IV SCH (20:30)
[2017-05-29] VITALS (8 sets, daily range): BP systolic 110–136; BP diastolic 75–87; PULSE 95–110; RESP 16–20; O2SAT 96–100
[2017-05-29] MEDS: HYDROcodone-APAP 5-325 mg Tablet PO PRN ×4 (02:45→23:40)
[2017-05-29] MEDS: Lactated Ringer's 1,000 ML IV SCH ×2 (03:43→10:23)
--- NOTE | 2017-05-29 05:54 | NUR ---
PAIN/MOBILITY A/O x3, remained on bedrest r/t to knee pain. Given 975mg Tylenol, without relief, order received/given for Hydrocodone 5/325mg. Indicates pain free, with exception of movement. Tele: AFib 90's - 110. VSS.
[2017-05-29] MEDS ORDERED: Vancomycin Inj 750 MG in 0.9% Sodium Chloride 250 ML IV ONE (08:10)
[2017-05-29] MEDS: Thiamine Inj 200 MG in Dextrose 5% 50 ML IV SCH (08:28)
[2017-05-29] MEDS: Famotidine Inj 20 MG in IV Premix 1 EACH IV SCH (08:29)
[2017-05-29] MEDS: Multivit-Miner-Folic Acid-Iron Tablet PO SCH (08:29)
[2017-05-29 08:49] LABS: BASOPHILS % (AUTO) 0.4 % (0-3); EOSINOPHILS % (AUTO) 2.2 % (0-5); MONOCYTES % (AUTO) 10.3 % (4-12); Mean Corpuscular Hemoglobin 33.6 pg (27.0-35.0); Mean Corpuscular Volume 107.1 fL (81-100); NEUTROPHILS % (AUTO) 56.3 % (40-74); Platelet Count 72 bil/L (150-400)
[2017-05-29] MEDS: Vancomycin Dose per Pharmacist XX SCH (10:46)
--- NOTE | 2017-05-29 11:15 | PCM.PNMED ---
Subjective Date of Service May 29, 2017 Subjective Overnight: no acute event. Today: The patient is complaining about pain in his knee, but it does not bother him much when he does not move. He denies any fevers, chills, shortness of breath, CP, nausea, vomiting, dizziness, or headache. Exam Vital Signs Vital Sign - Last Date Time Temp Pulse Resp B/P Pulse Ox O2 Delivery O2 Flow Rate FiO2 05/29/17 05:28 95 05/29/17 04:00 36.8 16 121/76 97 05/28/17 22:44 Room Air Intake and Output 05/28/17 05/28/17 05/29/17 Cumulative From/Thru 15:00 23:00 07:00 05/27/17 14:20 - 05/29/17 06:46 Intake Total 970 ml 547 ml 4466 ml Output Total 0 ml 300 ml 0 ml 670 ml Balance 0 ml 670 ml 547 ml 3796 ml Intake Oral 120 ml 200 ml 320 ml IV Total 850 ml 347 ml 3846 ml Packed Cells 300 ml Output Urine Total 300 ml 0 ml 670 ml Ultrafiltrate 0 ml 0 ml # Bowel Movements 0 Exam General: Obese, Oriented 2 (Pt states he does not care about the date). No distress. Fluent speech. Normal affect. HEENT: Normal skull. Normal nose and ears. Anicteric sclera, symmetric pupils. Oropharynx is unremarkable, no facial droop. Neck: supple, normal thyroid. No adenopathy. Lungs: are clear, normal effort rate. Heart: Irregular irregular, tachycardia without murmur, gallop, or rub. Abdomen: soft, nondistended or tender. Normoactive bowel sound. Extremities: free of pedal edema. Right knee tender to palpation with mild joint effusion. No erythema or deformity. Left arm fistula. Good radial and pedal pulses. Skin: free of rash, lesions. No petechiae or ecchymosis. Neuro: Cranial nerves are grossly normal. Motor strength is normal in all extremities. Normal muscular tone. IVs and Medications Medications Reviewed: Medications were reviewed in detail Lab and Diagnostics Result Diagram: 05/28/17 0600 05/28/17 0600 X-Rays, CTs and MRIs Chest x-ray unremarkable Abdomen pelvis CT unremarkable Head CT unremarkable. Right knee x-ray reveals a probable medial femoral condyle nondisplaced fracture with a knee effusion Cardiac Echo Impressions Interpretation Summary Left ventricular size is at the upper limits of normal. The ejection fraction is estimated to be 60-65%. LV wall motion is grossly normal. LVEF has not changed significantly since prior study. The right ventricle is borderline dilated. Grossly normal systolic function. The right ventricular systolic pressure is estimated at least 36 mmHg assuming a right atrial pressure of 15 mm Hg. RVSP is similar to prior study. Both atria are severely dilated. There is no significant valvular heart disease. Both MR and TR have decreased since prior study. The ascending aorta is mildly enlarged. Assessment & Plan Felix Perez is a 62 year old man with past medical history significant for ESRD on HD MWF who presented from dialysis due to hypotension and syncopal episode. Chronic Atrial Fibrillation, not on anticoagulation, active. - Rate has been in 100-130s. Resume Metoprolol XL 150mg daily. - CHADS2-VAS score of 2, but patient is not a candidate for anticoagulation due to alcoholism and high risk for falls. - Telemetry Sepsis, source unclear. POA. Resolved. - Suspect a possible cystitis or pyelonephritis but urine culture is negative. - Patient received empiric Cefepime and Vanco for 2 days. - No signs or symptoms of infections. Therefore will D/C antibiotics today. - D/C IVF. BP has been stable and map remains greater than 65. Lactic acidosis, POA, resolved. Probably right knee femoral condyle fracture, POA, active. - Orthopedics was consulted in the ED, but patient has not been seen. - Dr. Gardner was contacted and recommend a CT of the knee, which confirms the fracture as above. - Recommend nonweightbearing right lower extremity - Pain control with hydrocodone 5-10mg PRN - Nonweightbearing with the immobilizer and follow up in orthopedic clinic in 1- 2 weeks for follow-up as outpatient. - Keep the affected extremity elevated when possible. Alcohol intoxication, POA, resolved. - Alcohol level of 355 on admission. - The patient is at high risk for alcohol withdrawal, will enact CIWA protocol. - No signs or symptoms of withdrawal so far. - Continue Thiamine End-stage renal disease, POA. - The patient was due for dialysis today. We will also watch fluid resuscitation. Closely to avoid fluid overload. Hypokalemia and hypomagnesemia, new, active. - Replete during dialysis today. - Continue to monitor electrolytes. Probable chronic anemia related to kidney disease, POA, stable. - His initial hematocrit was low but a repeat was at 25. - We will follow with a.m. hematocrit. - He was guaiac negative in the emergency department. Hypertension, POA. - Follow clinically - resume Metoprolol ER 150mg daily. Patient is full resuscitation, confirmed the time of admit Patient is admitted inpatient status, length of stay of over 2 nights is expected Pain Evaluation: Adequate Pain Control GI Prophylaxis: H2 angela VTE Mechanical Devices: Intermittant Pneumatic CD Resuscitation Status: CPR: Attempt Resuscitation Attending Statement The patient was seen and examined with staff. Agree with all attached documentation. Angie Barker DO May 29, 2017 07:47 Arsh Flannery MD May 29, 2017 17:49
--- NOTE | 2017-05-29 12:30 | NUR ---
Pt arrived to [facility]: Pt arrived to [facility] for dialysis treatment. Pt arrived from [facility] for right knee. Pt appears stable at time of arrival. Report given by Rosina Estrada RN. [facility] aware of tem room change. Addendum: 05/29/17 at 1645 by REENA WILKS RN Pt completed treatment and may return to [facility] room 2011. Report given to Rosina Estrada RN. [facility] aware of transfer. Pt appears stable at time of transfer.
--- NOTE | 2017-05-29 12:31 | PCM.CONORT ---
Subjective Surgeon Admitting Provider:Arsh Flannery MD Attending Provider:Arsh Flannery MD Primary Care Physician:Spike Mckeon DO Other Provider: Reason for Consultation: Right knee pain status post fall Allergy Allergies: Coded Allergies: rosuvastatin (Verified Adverse Reaction, Mild, 05/27/17) "Makes my arms and legs weak. It makes me feel bad" Medications Folic Acid (Folic Acid) 1 Mg Tablet 1 MG PO DAILY (Reported) Last Taken: UNKNOWN on Unknown Date & Time Furosemide (Furosemide) 80 Mg Tab 80 MG PO (Reported) Last Taken: UNKNOWN on Unknown Date & Time Metoprolol Succinate ER ( Metoprolol Succinate ER) 50 Mg Tab.er.24h 150 MG PO DAILY (Reported) Last Taken: Unknown Dose on 05/25/17 Omeprazole (Omeprazole) 20 Mg Capsule.dr 20 MG PO MORNING (Reported) Last Taken: UNKNOWN on Unknown Date & Time Discontinued Medications Metoprolol Succinate ER (Metoprolol Succinate ER) 200 Mg Tab.er.24h 200 MG PO DAILY (Reported) Ondansetron (Ondansetron) 4 Mg Tablet 4 MG PO Q6H PRN PRN For Nausea/Vomiting ( Reported) Vancomycin (Vancomycin) 125 Mg Capsule 125 MG PO Q6 Prescribed by: EDGARD CORRIGAN, History History of ENT Problems?: No HEENT History: Denies:: Cataracts Dysphagia Glaucoma Sinus Problem Denture Type: None Teeth Condition: Within Normal Limits Hx of Heart Problems?: Yes Cardiovascular History: Positive for:: Atrial Fibrillation Edema Hypertension Irregular Heartbeat (A-fib) Denies:: Cardiac Surgery Chest Pain Congestive Heart Failure Heart Murmur Pacemaker Thrombophlebitis Hx of Respiratory Problem?: No Respiratory History: Positive for:: Hemoptysis Denies:: Asthma COPD Chest Surgery Dyspnea Emphysema Pneumonia Tuberculosis Hx Neurologic Problems?: Yes Neurological History: Denies:: Alzheimer's Disease CVA Dementia Dizziness Headaches Parkinson's Disease Seizures Hx of GI Problems?: Yes Hx of Problems?: Yes Genitourinary History: Positive for:: HX of Hemodialysis (M/W/F, left arm fistula ) Denies:: Kidney Stones Urinary Tract Infection HX of Peritoneal Dialysis: No Other Pertinent History: stage 5 renal failure Male Hx: Denies:: Prostate Problems Scrotal Mass Testicular Surgery Hx Musculoskeletal Problems?: Yes Musculoskeletal History: Positive for:: Musculoskeletal Trauma (reported a 30 foot fall in 1983) Denies:: Back Injury Joint Replacement Other History/Comment Felix Perez is a 62-year-old male patient who presents to the emergency room after a fall from standing and an orthopedic evaluation of the right knee was requested given x-ray with possible fracture and pain. The patient states that their pain is a sharp in nature and mild/moderate in severity localized to the medial and lateral aspect of the right knee without radiation. This has been progressing over the past several days after after his fall. Moreover, the pain is exacerbated by activities, especially with movement and bending. Rest seems to improve the symptoms. Patient reports associated symptoms no clicking, some stiffness, some swelling, with some weakness. There is no reports numbness, tingling, or weakness to the affected distal lower extremity. The patient denies any fever, chills, nausea, vomiting, chest pain, shortness of breath, or calf tenderness. Previous treatment has included: Immobilizer placed in the emergency room. Work/hobbies/sports include: None listed Hx of Psycho/Social Problems?: Yes Psycho Social History: Positive for:: Anxiety Denies:: Bipolar Disorder Hx Depression Suicide Attempt Hx Surgeries?: Yes (Right hip I&D, tonsillectomy, fistula) Hx Any Other Health Problems?: Yes Other History: Positive for:: Hospitalization ([facility], Surgeries below, internal bleeding, pancreatitis.) Denies:: Cancer Thyroid Disease History Blood Transfusions: Positive for:: Accept Blood Products? Blood Transfusions Denies:: Blood Transfuse Reaction Hx Diabetes: NoBedside Blood Glucose: 112 Occupation: non- Hx Alcohol Use: Yes ("2 SINGLE SHOTS OF VODKA TODAY".)Hx Substance Use: No Smoking Status: Former Smoker Have You Smoked inLast 12 mo: No Objective Exam Vital Signs & I/O Vital Sign- Last 8 Hours Date Time Temp Pulse Resp B/P Pulse Ox O2 Delivery O2 Flow Rate FiO2 05/29/17 12:00 36.8 96 20 130/87 100 05/29/17 08:00 106 05/29/17 08:00 36.8 105 18 136/80 100 05/29/17 05:28 95 Intake and Output- Last 8 Hour 05/29/17 Cumulative From/Thru 07:00 05/27/17 14:20 - 05/29/17 06:46 Intake Total 547 ml 4466 ml Output Total 0 ml 670 ml Balance 547 ml 3796 ml Intake Oral 200 ml 320 ml IV Total 347 ml 3846 ml Packed Cells 300 ml Output Urine Total 0 ml 670 ml Ultrafiltrate 0 ml # Bowel Movements 0 Lab & Micro Results Laboratory Tests Test 05/28/17 14:29 05/29/17 04:00 05/29/17 08:32 05/29/17 08:35 Lactic Acid Level 4.0mmol/L (0.4-2.0) 0.7mmol/L (0.4-2.0) Random Vancomycin Level 9.1ug/mL Rx Magnesium Level 1.5mg/dL (1.6-2.6) White Blood Count 2.2th/mm3 (3.8-10.1) Red Blood Count 2.26mil/mm3 (4.40-5.80) Hemoglobin 7.6g/dL (13.8-17.2) Hematocrit 24.2% (41.0-50.0) Mean Corpuscular Volume 107.1fL (81-100) Mean Corpuscular Hemoglobin 33.6pg (27.0-35.0) Mean Corpuscular Hemoglobin Concent 31.4% (32.0-37.0) Red Cell Distribution Width 16.5% (12.3-15.4) Platelet Count 72bil/L (150-400) Neutrophils (%) (Auto) 56.3% (40-74) Lymphocytes (%) (Auto) 30.4% (14-46) Monocytes (%) (Auto) 10.3% (4-12) Eosinophils (%) (Auto) 2.2% (0-5) Basophils (%) (Auto) 0.4% (0-3) Sodium Level 138mEq/L (134-144) Potassium Level 3.2mEq/L (3.5-5.2) Chloride Level 97mEq/L (97-108) Carbon Dioxide Level 25mmol/L (18-29) Blood Urea Nitrogen 15mg/dL (8-27) Creatinine 4.64mg/dL (0.76-1.27) Estimat Glomerular Filtration Rate 14mL/min (>59) Glucose Level 92mg/dL (60-99) Calcium Level 8.2mg/dL (8.5-10.1) Microbiology 05/27/17 Blood Culture - Preliminary, Resulted NO GROWTH AFTER 24 HOURS 05/27/17 MRSA (PCR), Received Pending 05/27/17 Urine Culture - Final, Complete Mixed Urogenital [place] Result Diagram: 05/29/1783405/29/17834 Review of Systems: Constitutional: Negative, except as otherwise mentioned in the history above. Ophthalmologic: Negative, except as otherwise mentioned in the history above. Cardiovascular: Negative, except as otherwise mentioned in the history above. Respiratory: Negative, except as otherwise mentioned in the history above. Gastrointestinal: Negative, except as otherwise mentioned in the history above. Genitourinary: Negative, except as otherwise mentioned in the history above. Musculoskeletal: Negative, except as otherwise mentioned in the history above. Neurological: Negative, except as otherwise mentioned in the history above. Psychiatric: Negative, except as otherwise mentioned in the history above. Hematologic/Lymphatic: Negative, except as otherwise mentioned in the history above. Allergic/Immunologic: Negative, except as otherwise mentioned in the history above. H&P Surgical Exam Exam Musculoskeletal: CONST: WD,WN, NAD, A+OX3 OCULAR: EOMI, no conjunctivitis/icterus ENT: no deformities, scars or lesions CARDIAC: Pulse is regular. No cyanosis,clubbing,edema RESP: regular,unlabored MSK: normal light touch SPN/DPN/TN distributions. 5/5 DF/PF/Inv/Ev, 2+ DP Right KNEE - scars. Mild effusion - erythema - atrophy or asymmetry. TTP medial and lateral femoral condyle ROM Deferred secondary to pain + painful arc, + effusion, - crepitus, - calf tenderness - instability on varus/valgus stress Signs Rolanda's: + Reverse McMurrays: + Nola: 1+ Drawer: 1+ Dial: - Elda: - Apprehension:- J sign:- patella tilt: - Additional Information Three-view x-ray of the right knee demonstrates osteopenia, mild effusion, possibly mainly displaced medial femoral condyle fracture H&P Preop Plan Impression Right knee pain with possible medial femoral condyle fracture Problems: Risks & Benefits * We have reviewed the risks and benefits as well as the alternatives to surgery. All questions were answered to the patient's satisfaction and a counseling note to that effect. The patient has provided informed consent. * I have counseled the patient regarding the deleterious effects that smoking during the perioperative period can have upon wound healing, infection rates, and the overall rate of complications. Plan Recommend nonweightbearing right lower extremity Pain control Continue medical management per primary Recommend CT scan to further delineate possible distal femur fracture Recommend weightbearing as tolerated if no fracture noted Recommend nonweightbearing with the immobilizer and follow up in orthopedic clinic in 1-2 weeks for follow-up if fracture noted Please keep the affected extremity elevated when possible. You may use ice as needed for comfort. All questions and concerns were addressed. Please feel free to call with any further questions, comments, and/or concerns. Dick Gardner MD May 29, 2017 12:31
--- NOTE | 2017-05-29 14:17 | PCM.PNNEPH ---
Subjective Date of Service May 29, 2017 Subjective The patient is continuing to slowly improve. He denies any headache, chest pain , nausea, vomiting or diarrhea. He is tolerating a diet. His morning labs showed hemoglobin 7.6, sodium 138, potassium 3.2, chloride 97, bicarbonate 25, BUN and creatinine were 15 and 4.6 respectively. Exam Vital Signs Vital Sign - Last Date Time Temp Pulse Resp B/P Pulse Ox O2 Delivery O2 Flow Rate FiO2 05/29/17 12:00 36.8 96 20 130/87 100 05/28/17 22:44 Room Air Intake and Output 05/28/17 05/28/17 05/29/17 Cumulative From/Thru 15:00 23:00 07:00 05/27/17 14:20 - 05/29/17 06:46 Intake Total 970 ml 547 ml 4466 ml Output Total 0 ml 300 ml 0 ml 670 ml Balance 0 ml 670 ml 547 ml 3796 ml Intake Oral 120 ml 200 ml 320 ml IV Total 850 ml 347 ml 3846 ml Packed Cells 300 ml Output Urine Total 300 ml 0 ml 670 ml Ultrafiltrate 0 ml 0 ml # Bowel Movements 0 Exam Neck is supple without adenopathy, thyromegaly, or jugular venous distention. Lungs are clear to auscultation though breath sounds are diminished bilaterally. Heart was irregularly irregular. Abdomen is slightly distended but nontender. There is some questionable hepatomegaly. Extremities did not show any evidence of any clubbing, cyanosis, or edema. Skin turgor is good. Lab and Diagnostics Result Diagram: 05/29/17 0835 05/29/17 0835 X-Rays, CTs and MRIs Chest x-ray unremarkable Abdomen pelvis CT unremarkable Head CT unremarkable. Right knee x-ray reveals a probable medial femoral condyle nondisplaced fracture with a knee effusion Cardiac Echo Impressions Interpretation Summary Left ventricular size is at the upper limits of normal. The ejection fraction is estimated to be 60-65%. LV wall motion is grossly normal. LVEF has not changed significantly since prior study. The right ventricle is borderline dilated. Grossly normal systolic function. The right ventricular systolic pressure is estimated at least 36 mmHg assuming a right atrial pressure of 15 mm Hg. RVSP is similar to prior study. Both atria are severely dilated. There is no significant valvular heart disease. Both MR and TR have decreased since prior study. The ascending aorta is mildly enlarged. Plan Impression Impression #1 end-stage renal disease dialysis dependent #2 acute alcohol intoxication which is resolved #3 dehydration #4 hypotension secondary to dehydration #5 hypokalemia Recommendations #1 patient dialyzed today for 3-1/2 hours on a max dialyzer, 4 potassium bath, 1200 of heparin and 500/h, 400 blood flow to 600 dialysate flow , and 1/2-1 L fluid removal as tolerated. Odin Crowley DO May 29, 2017 14:17
--- NOTE | 2017-05-29 14:53 | DRSVH ---
PROCEDURE: CT KNEE RIGHT W/O CONTRAST (91195) INDICATIONS: 62-year-old male with probable femoral condylar fracture. TECHNIQUE: Noncontrast 1-1.5 mm axial sections acquired from the mid-patella to the proximal tibia, with coronal and sagittal reformats. COMPARISON: [facility], CR, XR KNEE 3VW RT, 05/27/2017, 14:34. FINDINGS: Image quality: Excellent. Bones: On axial image 85, there is a minimally displaced vertical fracture extending through the medi al femoral epicondyle. The proximal tibia appears intact. There is background diffuse osteopenia. The re is medial knee joint narrowing, without osteophyte formation. Soft tissues: There is large knee joint effusion. There is patchy popliteal artery atherosclerosis. V isualized muscles appear atrophic throughout. IMPRESSION: 1. Radiographic finding corresponds with minimally displaced vertical fracture through the medial fem oral epicondyle, suboptimally visualized due to patient's background osteopenia. 2. Associated large knee joint effusion. Dictated by: Artie Madera M.D. on 05/29/2017 at 14:46 Approved by: Artie Madera M.D. on 05/29/2017 at 14:52
--- NOTE | 2017-05-29 15:32 | NUR ---
Social Work: Multidisciplinary Rounds Pt discussed in MD rounds. Pt is not medically stable for discharge home. Ortho consult required for Tibia fracture. Pt seen ambulating halls. CD order placed as pt had a BAL of. 355 at admit. Case Management acknowledges order however cannot see the patient today due to high census. DIRECTOR FOOD AND BEVERAGE will see patient prior to d/c. AYESHA Newton
--- NOTE | 2017-05-29 17:00 | NUR ---
Dialysis note: 3 1/2 hrs tx 1000 ml net UF TYRONE fistula, accessed w/ no problems Pls see DTR for VS details Qb 400-500 Heparin given O2 @ 2L via NC on during tx Tolerated tx, slept at intervals Fistula needle sites clotted w/in 10 min Stable condition at end of tx Report given to [place] CHACKO
[2017-05-29] MEDS: MeTOProlol XL 50 mg ER24 Tablet PO SCH (17:32)
--- NOTE | 2017-05-29 18:41 | NUR ---
Left unit/Pain Pt left [facility] room 2011 at ~[address] today for dialysis via CT, report called to receiving RN in [facility] [place]. Pt returned to [facility] room 2011 at ~1715 from [facility]. Pt's VSS on RA and A&Ox3 prior to leaving and upon returning from [facility]. Pt reporting pain in R knee with any movement of the limb, Pt given PRN vicodin which he reports as bringing pain to a tolerable level of 4/10 or lower. Pt received PRN vicodin X2 this shift.
[2017-05-30] VITALS (8 sets, daily range): BP systolic 112–131; BP diastolic 65–83; PULSE 92–115; RESP 15–16; O2SAT 97–100
[2017-05-30 03:44] LABS: BASOPHILS % (AUTO) 0.3 % (0-3); EOSINOPHILS % (AUTO) 2.8 % (0-5); MONOCYTES % (AUTO) 12.2 % (4-12); Mean Corpuscular Hemoglobin 33.9 pg (27.0-35.0); Mean Corpuscular Volume 109.6 fL (81-100); NEUTROPHILS % (AUTO) 62.2 % (40-74); Platelet Count 73 bil/L (150-400)
--- NOTE | 2017-05-30 03:59 | NUR ---
Mobility/Pain A/o x3. remained on BR, r/t knee fracture. Knee elevated, and iced, received Hydrocodone for pain control with good result. Some mobility in bed encouraged position change, every 2 hours. Pt. voiced concerns about d/c appointments and transportation, advised request for SW would be passed along to help with d/c planning. VSS, Tele: AFib 90's to mid 100's, occ. PVC
[2017-05-30 04:10] LABS: Magnesium 1.4 mg/dL (1.6-2.6)
[2017-05-30] MEDS: HYDROcodone-APAP 5-325 mg Tablet PO PRN ×3 (05:35→19:33)
--- NOTE | 2017-05-30 08:29 | PCM.PNMED ---
Subjective Date of Service May 30, 2017 Subjective Patient is having some hallucinations overnight but otherwise feels generally good with exception of severe right knee pain. He does have a medial femoral condyle fracture. Recommendations from orthopedics or nonweightbearing for 2 weeks and then orthopedic follow-up. CT scan did not verify fracture. No nausea, no abdominal pain. He has a poor appetite. No overnight events Exam Vital Signs Vital Sign - Last Date Time Temp Pulse Resp B/P Pulse Ox O2 Delivery O2 Flow Rate FiO2 05/30/17 05:26 111 05/30/17 03:44 37.5 16 131/83 98 Room Air Intake and Output 05/29/17 05/29/17 05/30/17 Cumulative From/Thru 15:00 23:00 07:00 05/27/17 14:20 - 05/30/17 06:46 Intake Total 881 ml 636 ml 5983 ml Output Total 1000 ml 1670 ml Balance -1000 ml 881 ml 636 ml 4313 ml Intake Oral 200 ml 636 ml 1156 ml IV Total 681 ml 4527 ml Packed Cells 300 ml Output Urine Total 670 ml Ultrafiltrate 1000 ml 1000 ml # Voids 6 6 # Bowel Movements 0 Exam Alert and oriented -3, no distress. Fluent speech Anicteric sclera. Lungs are clear with normal rate and effort Heart is regular without murmur gallop or rub Abdomen soft nontender, flat Extremities are free of edema. Skin is free of rash or lesions. Right knee is in a brace IVs and Medications Medications Reviewed: Medications were reviewed in detail Lab and Diagnostics Result Diagram: 05/30/17 0340 05/30/17 0340 X-Rays, CTs and MRIs Chest x-ray unremarkable Abdomen pelvis CT unremarkable Head CT unremarkable. Right knee x-ray reveals a probable medial femoral condyle nondisplaced fracture with a knee effusion Cardiac Echo Impressions Interpretation Summary Left ventricular size is at the upper limits of normal. The ejection fraction is estimated to be 60-65%. LV wall motion is grossly normal. LVEF has not changed significantly since prior study. The right ventricle is borderline dilated. Grossly normal systolic function. The right ventricular systolic pressure is estimated at least 36 mmHg assuming a right atrial pressure of 15 mm Hg. RVSP is similar to prior study. Both atria are severely dilated. There is no significant valvular heart disease. Both MR and TR have decreased since prior study. The ascending aorta is mildly enlarged. Assessment & Plan Felix Perez is a 62 year old man with past medical history significant for ESRD on HD MWF who presented from dialysis due to hypotension and syncopal episode. Chronic Atrial Fibrillation, not on anticoagulation, active and rate controlled, . - Rate has been in 100-130s. Resume Metoprolol XL 150mg daily. - CHADS2-VAS score of 2, but patient is not a candidate for anticoagulation due to alcoholism and high risk for falls. - Telemetry, no change to medical management. Sepsis, source unclear. POA. Resolved. - Suspect a possible cystitis or pyelonephritis but urine culture is negative. - Patient received empiric Cefepime and Vanco for 2 days. - No signs or symptoms of infections. Therefore will D/C antibiotics today. - D/C IVF. BP has been stable and map remains greater than 65. Lactic acidosis, POA, resolved. Right knee femoral condyle fracture, POA, active. - Orthopedics was consulted in the ED, but patient has not been seen. - Dr. Gardner was contacted and recommend a CT of the knee, which confirms the fracture as above. - Recommend nonweightbearing right lower extremity - Pain control with hydrocodone 5-10mg PRN - Nonweightbearing with the immobilizer and follow up in orthopedic clinic in 1- 2 weeks for follow-up as outpatient. - Keep the affected extremity elevated when possible. No change in plan. Patient will require senior living facility at discharge given his now weightbearing status. Alcohol intoxication, POA, resolved. - Alcohol level of 355 on admission. - The patient is at high risk for alcohol withdrawal, will enact CIWA protocol. - No signs or symptoms of withdrawal so far. - Continue Thiamine Acute alcohol withdrawal syndrome, new and active. The patient remains on the CIWA protocol and has had hallucinations. We will continue to follow clinically. End-stage renal disease, POA. - The patient had dialysis yesterday. Continue was scheduled Hypokalemia and hypomagnesemia, resolved.. - Continue to monitor electrolytes. Probable chronic anemia related to kidney disease, POA, stable. - His initial hematocrit was low but a repeat was at 25. - We will follow with a.m. hematocrit. - He was guaiac negative in the emergency department. Hypertension, POA and stable. - Follow clinically - resume Metoprolol ER 150mg daily. Patient is full resuscitation, confirmed the time of admit Patient is admitted inpatient status, length of stay of over 2 nights is expected Discharge well until her discharge from [place] for a rehabilitation stay given his nonweightbearing status for at least 2 weeks. GI Prophylaxis: H2 angela VTE Mechanical Devices: Intermittant Pneumatic CD Resuscitation Status: CPR: Attempt Resuscitation Arsh Flannery MD May 30, 2017 08:29
[2017-05-30] MEDS: Thiamine Inj 200 MG in Dextrose 5% 50 ML IV SCH (09:31)
[2017-05-30] MEDS: Multivit-Miner-Folic Acid-Iron Tablet PO SCH (09:31)
[2017-05-30] MEDS: Famotidine Inj 20 MG in IV Premix 1 EACH IV SCH (09:31)
[2017-05-30] MEDS: MeTOProlol XL 50 mg ER24 Tablet PO SCH (09:34)
[2017-05-30] MEDS ORDERED: Magnesium Sulf 2 Gm/50mL Water 2 GM in IV Premix 1 EACH IV ONE (10:45)
--- NOTE | 2017-05-30 14:44 | PCM.PNORTH ---
Subjective Date of Service: May 30, 2017 Visit Information: Reason for Visit Sepsis,Anemia Surgery/Surgery Date Post-Op Day # Date of Admission: May 27, 2017 at 17:57 Hospital Day # Subjective Patient sleeping soundly Objective Exam Objective Patient is sleeping soundly and does not wake to verbal stimuli. Right LE: knee immobilizer is in place. Vital Signs and I/O Vital Sign - Last Date Time Temp Pulse Resp B/P Pulse Ox O2 Delivery O2 Flow Rate FiO2 05/30/17 11:58 37.0 95 16 112/67 100 Room Air Intake and Output 05/29/17 05/29/17 05/30/17 Cumulative From/Thru 15:00 23:00 07:00 05/27/17 14:20 - 05/30/17 06:46 Intake Total 881 ml 636 ml 5983 ml Output Total 1000 ml 1670 ml Balance -1000 ml 881 ml 636 ml 4313 ml Intake Oral 200 ml 636 ml 1156 ml IV Total 681 ml 4527 ml Packed Cells 300 ml Output Urine Total 670 ml Ultrafiltrate 1000 ml 1000 ml # Voids 6 6 # Bowel Movements 0 Lab & Micro Results Laboratory Tests Test 05/30/17 03:40 White Blood Count 2.9th/mm3 (3.8-10.1) Red Blood Count 2.18mil/mm3 (4.40-5.80) Hemoglobin 7.4g/dL (13.8-17.2) Hematocrit 23.9% (41.0-50.0) Mean Corpuscular Volume 109.6fL (81-100) Mean Corpuscular Hemoglobin 33.9pg (27.0-35.0) Mean Corpuscular Hemoglobin Concent 31.0% (32.0-37.0) Red Cell Distribution Width 16.7% (12.3-15.4) Platelet Count 73bil/L (150-400) Neutrophils (%) (Auto) 62.2% (40-74) Lymphocytes (%) (Auto) 22.2% (14-46) Monocytes (%) (Auto) 12.2% (4-12) Eosinophils (%) (Auto) 2.8% (0-5) Basophils (%) (Auto) 0.3% (0-3) Sodium Level 143mEq/L (134-144) Potassium Level 3.7mEq/L (3.5-5.2) Chloride Level 102mEq/L (97-108) Carbon Dioxide Level 27mmol/L (18-29) Blood Urea Nitrogen 7mg/dL (8-27) Creatinine 3.07mg/dL (0.76-1.27) Estimat Glomerular Filtration Rate 22mL/min (>59) Glucose Level 105mg/dL (60-99) Calcium Level 8.5mg/dL (8.5-10.1) Magnesium Level 1.4mg/dL (1.6-2.6) Total Bilirubin 0.4mg/dL (0.0-1.2) Aspartate Amino Transf (AST/SGOT) 8U/L (0-50) Alanine Aminotransferase (ALT/SGPT) 6U/L (0-44) Alkaline Phosphatase 73U/L (25-160) Total Protein 5.6g/dL (6.4-8.4) Albumin 2.6g/dL (3.4-5.0) Microbiology 05/27/17 Blood Culture - Preliminary, Resulted No growth at 2 days; culture examined... 05/27/17 MRSA (PCR) - Final, Complete 05/27/17 Urine Culture - Final, Complete Mixed Urogenital [place] Result Diagram: 05/30/17 0340 05/30/17 034 Assessment & Plan Impression Right knee medial femoral condyle fracture Problems: Plan CT scan reveals a probable vertical nondisplaced medial femoral condyle fracture. Continue with knee immobilizer and non weight bearing Follow up with Dr. Gardner at [facility] in 1-2 weeks Resuscitation Status: CPR: Attempt Resuscitation BuchananFelicia Yung PA-C May 30, 2017 14:44
--- NOTE | 2017-05-30 16:18 | NUR ---
Social Work: Multidisciplinary Rounds Pt discussed in MD rounds. Pt is not medically stable for discharge home. Pt is non-weight bearing now due to tibia fracture. MD states that pt will need SNF and pt's preference is [facility]. HEAD START DIRECTOR requested PT eval. to further assess pt's ability to manage weight bearing status with assistance of proper DME and assess for SNF. HEAD START DIRECTOR requested order to place referral to [facility]. MD acknowledges this request and will place order. HEAD START DIRECTOR attempted to see pt at bedside to complete CD assessment. Pt declined to participate today and would like HEAD START DIRECTOR to return at a later date. AYESHA Newton
--- NOTE | 2017-05-30 18:28 | NUR ---
Hallucination/Pain Pt verbalized seeing a little girl and older lady in his room this am during shift change that were not there, MD notified, no further hallucinations noted this shift, CIWA score 1 when assessed at am medication pass. Pt continues to have pain in right knee, reported that current regime of Q6 vicodin has been effective.
[2017-05-30] MEDS: Heparin 5,000 Unit/mL Inj SUBQ SCH (21:07)
[2017-05-31] VITALS (9 sets, daily range): BP systolic 111–144; BP diastolic 76–90; PULSE 93–110; RESP 16–20; O2SAT 98–100
[2017-05-31] MEDS: HYDROcodone-APAP 5-325 mg Tablet PO PRN ×4 (01:43→20:38)
--- NOTE | 2017-05-31 04:59 | NUR ---
Pain/Orientation Continues to have pain related to Knee injury, indicates q 6/hr Vicodin has been effective. A&O to questions, however exhibits and verbalizes intermittent confusion and/or hallucinations; i.e., suggested someone mistakenly put vodka in his orange juice. Transferred from 2011 to 2006, VSS, Tele AFib mid 100's - 140's. SPO2 90's on RA.
[2017-05-31] MEDS: Famotidine Inj 20 MG in IV Premix 1 EACH IV SCH (07:52)
[2017-05-31] MEDS: MeTOProlol XL 50 mg ER24 Tablet PO SCH (07:52)
[2017-05-31] MEDS: Multivit-Miner-Folic Acid-Iron Tablet PO SCH (07:52)
[2017-05-31] MEDS: Heparin 5,000 Unit/mL Inj SUBQ SCH ×2 (07:52→20:40)
--- NOTE | 2017-05-31 09:38 | NUR ---
Evaluation completed. Please go to "Notes" then click on "Assessments and Notes" (bottom left corner of screen). Then select appropriate discipline tab on top of screen.
--- NOTE | 2017-05-31 10:17 | NUR ---
Social Work: Multidisciplinary Rounds/Continued Discharge Planning/Chemical Dependency Assessment D: Pt discussed in am rounds. Pt may be ready for discharge pending acceptance at SNF. Preference if for [facility]; SECURITY OPERATIONS ANALYST acknowledges order for [facility] placement. SECURITY OPERATIONS ANALYST met with the patient at bedside to confirm preference for SNF; pt agrees his only preference is for [facility] and will not go anywhere else. SECURITY OPERATIONS ANALYST has placed referral and provided access. Pt admits that he is an almost daily drinker and that the amount of ETOH he consumes on a daily basis varies. Pt states that he gets bored at home and "all there is to do is drink." Pt states his drinking varies, somedays drinking a few shots of vodka, others not having any. The pt has never experienced withdrawal symptoms and states that he has many periods of sobriety in which he just stopped drinking. Pt is very friendly and willingly provides information to assessment. Pt states he has been diagnosed with depression but is not currently taking medication and does not feel he needs this. Pt has never participated in treatment and does not consider his drinking to be problematic. Pt has never had any legal ramifications due to his drinking. Pt states that his license was suspended by his managing chinese language professor, Dr. Burden, and he is on the waitlist for [facility] in [place] to see a provider/business analysis specialist who can reinstate this. Pt understands that if he goes to skilled rehab, he will under no circumstances be allowed to drink. Pt states that he understands and respects this rule and has no concerns about his ability to remain sober while admitted for rehab. PASSR positive for depression; level 2 exemption completed A: Pt who will require skilled rehab due to weight bearing status. P: [facility] is reviewing for possible admission. SECURITY OPERATIONS ANALYST will continue to follow to assist with discharge planning. AYESHA Newton Addendum: 05/31/17 at 1610 by BEBE M HALTERMA SS SECURITY OPERATIONS ANALYST spoke with Martha at [facility]. She states that they can accept the patient however the patient will need to be transferred to dialysis at [facility] and have a confirmed chair before she will accept the patient. SECURITY OPERATIONS ANALYST spoke with park keeperSavanah on [facility] who states that they will only accept chronic HD uses who are inpatient or pt's followed by the [facility] who do not have a chair. They will not be able to provide the patient a chair for tomorrow. SECURITY OPERATIONS ANALYST will need to contact the kidney center on Thursday to attempt to secure the pt a chair with them before discharge to [facility]. , RN and pt are aware of this.
[2017-05-31 10:22] LABS: Magnesium 1.7 mg/dL (1.6-2.6)
--- NOTE | 2017-05-31 11:17 | PCM.PNNEPH ---
Subjective Date of Service May 31, 2017 Subjective The patient is awake and alert he still has considerable confusion and is not oriented to time or place. While I am unsure as to the acuteness versus chronicity of this , I obtained several days ago showed diffuse small vessel disease which is consistent with multi-infarct dementia. Exam Vital Signs Vital Sign - Last Date Time Temp Pulse Resp B/P Pulse Ox O2 Delivery O2 Flow Rate FiO2 05/31/17 08:12 106 05/31/17 07:50 36.8 16 144/83 100 Room Air Intake and Output 05/30/17 05/30/17 05/31/17 Cumulative From/Thru 15:00 23:00 07:00 05/27/17 14:20 - 05/31/17 05:12 Intake Total 1240 ml 236 ml 7459 ml Output Total 200 ml 0 ml 1870 ml Balance 1040 ml 236 ml 5589 ml Intake Oral 1080 ml 236 ml 2472 ml IV Total 160 ml 4687 ml Packed Cells 300 ml Output Urine Total 200 ml 0 ml 870 ml Ultrafiltrate 1000 ml # Voids 6 # Bowel Movements 0 0 Exam Neck supple without adenopathy, thyromegaly, or jugular venous distention. Lungs are clear to auscultation. Heart is regular with a soft systolic murmur. Abdomen soft without any tenderness rebound guarding masses or hepatosplenomegaly. Extremities do not show any evidence of any clubbing, cyanosis, or edema. Skin turgor is good. Lab and Diagnostics Result Diagram: 05/30/17 0340 05/31/17 0948 X-Rays, CTs and MRIs Chest x-ray unremarkable Abdomen pelvis CT unremarkable Head CT unremarkable. Right knee x-ray reveals a probable medial femoral condyle nondisplaced fracture with a knee effusion Cardiac Echo Impressions Interpretation Summary Left ventricular size is at the upper limits of normal. The ejection fraction is estimated to be 60-65%. LV wall motion is grossly normal. LVEF has not changed significantly since prior study. The right ventricle is borderline dilated. Grossly normal systolic function. The right ventricular systolic pressure is estimated at least 36 mmHg assuming a right atrial pressure of 15 mm Hg. RVSP is similar to prior study. Both atria are severely dilated. There is no significant valvular heart disease. Both MR and TR have decreased since prior study. The ascending aorta is mildly enlarged. 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 Recommendations #1 I will make arrangements for his dialysis treatment for tomorrow but would also recommend further evaluation of his neurological status. I will also continue his thiamine supplementation. Odin Crowley DO May 31, 2017 11:17
[2017-05-31] MEDS ORDERED: Darbepoetin Alfa 100 mCg/0.5 mL Inj SUBQ ONE (11:20)
[2017-05-31] MEDS: Thiamine Inj 100 MG in Dextrose 5% 50 ML IV SCH (11:20)
--- NOTE | 2017-05-31 11:34 | PCM.PNMED ---
Subjective Date of Service May 31, 2017 Subjective Nursing staff reports that patient has exhibits confusion and hallucination episodes intermittently. Telemetry shows Afib in 100-140s. His right knee pain is well controlled with Vicodin Q6H. Today, patient reports that he is in pain, even with slight movement of the right leg. However, Vicodin has been effective and he does not need anything currently. Exam Vital Signs Vital Sign - Last Date Time Temp Pulse Resp B/P Pulse Ox O2 Delivery O2 Flow Rate FiO2 05/31/17 08:12 106 05/31/17 07:50 36.8 16 144/83 100 Room Air Intake and Output 05/30/17 05/30/17 05/31/17 Cumulative From/Thru 15:00 23:00 07:00 05/27/17 14:20 - 05/31/17 05:12 Intake Total 1240 ml 236 ml 7459 ml Output Total 200 ml 0 ml 1870 ml Balance 1040 ml 236 ml 5589 ml Intake Oral 1080 ml 236 ml 2472 ml IV Total 160 ml 4687 ml Packed Cells 300 ml Output Urine Total 200 ml 0 ml 870 ml Ultrafiltrate 1000 ml # Voids 6 # Bowel Movements 0 0 Exam General: Obese, Alert and Oriented to place and person. No distress. Fluent speech. Normal affect. HEENT: Normal skull. Normal nose and ears. Anicteric sclera, symmetric pupils. Oropharynx is unremarkable, no facial droop. Neck: supple, normal thyroid. No adenopathy. Lungs: are clear, normal effort rate. Heart: Irregular irregular, tachycardia without murmur, gallop, or rub. Abdomen: soft, nondistended or tender. Normoactive bowel sound. Extremities: free of pedal edema. Right knee tender to palpation with mild joint effusion. No erythema or deformity. Left arm fistula. Good radial and pedal pulses. Skin: free of rash, lesions. No petechiae or ecchymosis. Neuro: Cranial nerves are grossly normal. No facial droop. Normal speech. Motor strength is normal in all extremities. Normal muscular tone. IVs and Medications Medications Reviewed: Medications were reviewed in detail Lab and Diagnostics Result Diagram: 05/30/17 0340 05/31/17 0948 X-Rays, CTs and MRIs Chest x-ray unremarkable Abdomen pelvis CT unremarkable Head CT unremarkable. Right knee x-ray reveals a probable medial femoral condyle nondisplaced fracture with a knee effusion Cardiac Echo Impressions Interpretation Summary Left ventricular size is at the upper limits of normal. The ejection fraction is estimated to be 60-65%. LV wall motion is grossly normal. LVEF has not changed significantly since prior study. The right ventricle is borderline dilated. Grossly normal systolic function. The right ventricular systolic pressure is estimated at least 36 mmHg assuming a right atrial pressure of 15 mm Hg. RVSP is similar to prior study. Both atria are severely dilated. There is no significant valvular heart disease. Both MR and TR have decreased since prior study. The ascending aorta is mildly enlarged. Assessment & Plan Felix Perez is a 62 year old man with past medical history significant for ESRD on HD MWF who presented from dialysis due to hypotension and syncopal episode. Altered mental status (encephalopathy), new, active. - Patient has exhibited signs of confusion and hallucinations in the last couple days. - Suspect to be chronic and due to dementia. CT brain on admissions showed chronic small vessel ischemic changes and parenchymal volume loss. - Normal neurological exam and no signs of stroke or seizure. - Continue CIWA protocol. Continue Thiamine daily. - Check B12 and folate Chronic Atrial Fibrillation, not on anticoagulation, active and rate controlled. - Rate has been in 100-130s. Increase Metoprolol XL to 200mg daily. - CHADS2-VAS score of 2, but patient is not a candidate for anticoagulation due to alcoholism and high risk for falls. - Telemetry, no change to medical management. Sepsis, source unclear. POA. Resolved. - Suspect a possible cystitis or pyelonephritis but urine culture is negative. - Patient received empiric Cefepime and Vanco for 2 days. - No signs or symptoms of infections. - D/C IVF. BP has been stable and map remains greater than 65. Lactic acidosis, POA, resolved. Right knee femoral condyle fracture, POA, active. - Orthopedics was consulted in the ED, but patient has not been seen. - Dr. Gardner was contacted and recommend a CT of the knee, which confirms the fracture as above. - Recommend nonweightbearing right lower extremity - Pain control with hydrocodone 5-10mg PRN - Nonweightbearing with the immobilizer and follow up in orthopedic clinic in 1- 2 weeks for follow-up as outpatient. - Keep the affected extremity elevated when possible. - Patient will require [facility] facility at discharge given his now weightbearing status. Pancytopenia, likely chronic, stable. - Based on values obtained from previous admissions, WBC and platelets appear to frequently be low - Possible etiologies include alcohol use, vitamin deficiencies, underlying infection or history of chronic infection - Monitor clinically Probable chronic anemia related to kidney disease, POA, stable. - His initial hematocrit was low but a repeat was at 25. - We will follow CBC daily - Check B12 and Folate. - He was guaiac negative in the emergency department. Alcohol intoxication, POA, resolved. - Alcohol level of 355 on admission. - The patient is at high risk for alcohol withdrawal, will enact CICA protocol. - No signs or symptoms of withdrawal so far. - Continue Thiamine Acute alcohol withdrawal syndrome, new and active. -The patient remains on the CIWA protocol and has had hallucinations. We will continue to follow clinically. End-stage renal disease, POA. - Continue with scheduled dialysis. Patient will have dialysis prior to discharge tomorrow. Hypokalemia and hypomagnesemia, resolved. - Continue to monitor electrolytes. Hypertension, POA and stable. - Follow clinically - resume Metoprolol ER 150mg daily. Patient is full resuscitation, confirmed the time of admit Patient is admitted inpatient status, length of stay of over 2 nights is expected Discharge well until her discharge from [facility] for a rehabilitation stay given his nonweightbearing status for at least 2 weeks. Pain Evaluation: Adequate Pain Control GI Prophylaxis: H2 angela VTE Mechanical Devices: Intermittant Pneumatic CD Resuscitation Status: CPR: Attempt Resuscitation Attending Statement Patient seen and examined with house staff. Agree with all attached documentation. Angie Barker DO May 31, 2017 11:34 Arsh Flannery MD May 31, 2017 18:24
--- NOTE | 2017-05-31 19:07 | NUR ---
Confusion/Pain Pt has intermittent episodes of confusion. On one occasion he tried to leave unit in his WC stating that this "hotel is too sterile, and I don't like the subject at the conference". Pt becomes defensive when reorienting, but once reoriented stays that way for 1-2 hours. Pain level reported consistently at 6-8. Pt advised to stay in bed with leg elevated and ice, but refuses and insists on getting into his wheelchair.
[2017-06-01] VITALS (9 sets, daily range): BP systolic 116–135; BP diastolic 70–90; PULSE 80–105; RESP 16–20; O2SAT 98–99
[2017-06-01 04:35] LABS: Mean Corpuscular Hemoglobin 33.8 pg (27.0-35.0); Mean Corpuscular Volume 109.5 fL (81-100)
[2017-06-01 05:00] LABS: Unsaturated Iron Binding 125.7 ug/dL
--- NOTE | 2017-06-01 06:05 | NUR ---
critical values pts H/H this morning 6.07/14 called MD received order to hold 1unit RBC and to give with HD this morning, pt other mei stable.
[2017-06-01] MEDS: Heparin 5,000 Unit/mL Inj SUBQ SCH ×2 (08:30→20:33)
[2017-06-01] MEDS: HYDROcodone-APAP 5-325 mg Tablet PO PRN ×3 (09:04→21:41)
--- NOTE | 2017-06-01 09:36 | PCM.DIMED ---
Angie Barker DO 06/01/17 0651: Discharge Instructions Date of Service Jun 01, 2017 Dates of Hospitalization May 27, 2017 at 17:57 Discharge Diagnosis Discharge Diagnosis Altered mental status (encephalopathy), new, active. Chronic Atrial Fibrillation, not on anticoagulation, active and rate controlled. Sepsis, source unclear. POA. Resolved. Lactic acidosis, POA, resolved. Right knee femoral condyle fracture, POA, active. Pancytopenia, likely chronic, stable. Acute on chronic anemia related to kidney disease, POA, stable. Alcohol intoxication, POA, resolved. Acute alcohol withdrawal syndrome, new and active. End-stage renal disease on dialysis, POA. Hypokalemia and hypomagnesemia, resolved. Hypertension, POA and stable. Diet Discharge Diet: Renal Diet Activity Discharge Activity: Limited until seen by PCP Call your provider Call your provider for: Shortness of breath, Bleeding, Chest pain, Weakness ( unilateral) Patient Instructions Patient Instructions - There was suspicion of infection at admission, but this was ruled out by negative workup. The low blood pressure that you experienced could be due to dehydration. Please stop drinking alcohol. - Resume the dialysis schedule at the intermediate. - No change in your current medications. - nonweightbearing right lower extremity with the immobilizer. You will need to go to shelter facility for this. - Pain control with hydrocodone 5-10mg Q6H as needed for pain. - Follow up in orthopedic clinic in 1-2 weeks for follow-up as outpatient. - Keep the affected extremity elevated when possible. - You were found to have anemia and received 1 unit of blood. You will need to have a CBC and BMP with Magnesium check in 3-4 days at the intermediate. - Take a multivitamin and Thiamine daily. - I increased the Metoprolol dose to 200mg daily. Please take as directed. - Follow up with your doctor per discharge from intermediate. - Go to the ER if you develop dizziness, headache, nausea, vomiting, one-sided weakness, slurred speech, or change in mental status. Follow-up Provider: Spike Mckeon DO Follow-up with PCP in: 2 weeks Provider: Dick Gardner MD Follow-up in: 1 week Arsh Flannery MD 06/02/17 1628: Discharge Instructions Attending's Statement The patient was seen and examined with staff. Agree with all attached documentation. Angie Barker DO Jun 01, 2017 06:51 Arsh Flannery MD Jun 02, 2017 16:28
--- NOTE | 2017-06-01 10:30 | NUR ---
Social Work: Multidisciplinary Rounds/Continued Discharge Planning D/A: Pt was discussed in AM rounds this morning. Per MD pt is getting closer to being medically ready for discharge. Pt to receive a unit of blood and undergo dialysis today. PENG spoke with Joy at the [facility] regarding obtaining a HD chair for pt while he is receiving rehab at [facility]. [facility] RN observed that pt does not have updated hepatitis panel and this will need to be completed prior to the kidney center reserving a chair for pt. [facility]ney Center RN plans to call [facility] study manager for the blood work to be completed, but explained this could take up to 48 hours for the results to come back in. notified. PENG to continue to follow. P:Anticipated discharge to [facility] for rehab pending securing a HD chair at [facility]. SW to continue to follow. AYESHA Brewer Addendum: 06/01/17 at 1545 by TIMUR SALVADOR Per margarine churn operator, pt requires a Hep B DNA test that is pending. Due to pt need for an isolation room, pt will need to go to [facility] for dialysis until his testing comes back and then he can transition to the [facility] for HD while he is at [facility]. Pt is scheduled for MWF at 8:00am HD at [facility] after discharge. [facility] updated. notified. PENG to continue to follow. AYESHA Brewer
--- NOTE | 2017-06-01 14:37 | PCM.PNMED ---
Subjective Date of Service Jun 01, 2017 Subjective No acute event overnight. No report of confusion. Hemoglobin dropped to 6.8 this morning. Patient remains asymptomatic. Today, patient denies any complaint. He states that the knee pain is not bad if he does not move at all. He denies any palpitations, chest pain, SOB, nausea, vomiting, or headache. Exam Vital Signs Vital Sign - Last Date Time Temp Pulse Resp B/P Pulse Ox O2 Delivery O2 Flow Rate FiO2 06/01/17 10:00 101 06/01/17 09:00 36.9 18 129/80 98 Room Air Intake and Output 05/31/17 05/31/17 06/01/17 Cumulative From/Thru 15:00 23:00 07:00 05/27/17 14:20 - 06/01/17 06:17 Intake Total 800 ml 400 ml 8659 ml Output Total 1 ml 1871 ml Balance 799 ml 400 ml 6788 ml Intake Oral 800 ml 400 ml 3672 ml IV Total 4687 ml Packed Cells 300 ml Output Urine Total 870 ml Urine/Stool Mix 1 ml 1 ml Ultrafiltrate 1000 ml # Voids 3 1 10 # Bowel Movements 0 Exam General: Obese, Alert and Oriented to place and person. No distress. Fluent speech. Normal affect. HEENT: Normal skull. Normal nose and ears. Anicteric sclera, symmetric pupils. Oropharynx is unremarkable, no facial droop. Neck: supple, normal thyroid. No adenopathy. Lungs: are clear, normal effort rate. Heart: Irregular irregular, tachycardia without murmur, gallop, or rub. Abdomen: soft, nondistended or tender. Normoactive bowel sound. Extremities: free of pedal edema. Right knee very tender to palpation with mild joint effusion. No erythema or deformity. Left arm fistula. Good radial and pedal pulses. Skin: free of rash, lesions. No petechiae or ecchymosis. Neuro: Cranial nerves are grossly normal. No facial droop. Normal speech. Motor strength is normal in all extremities. Normal muscular tone. IVs and Medications Medications Reviewed: Medications were reviewed in detail Lab and Diagnostics Result Diagram: 06/01/1741406/01/17414 X-Rays, CTs and MRIs Chest x-ray unremarkable Abdomen pelvis CT unremarkable Head CT unremarkable. Right knee x-ray reveals a probable medial femoral condyle nondisplaced fracture with a knee effusion Cardiac Echo Impressions Interpretation Summary Left ventricular size is at the upper limits of normal. The ejection fraction is estimated to be 60-65%. LV wall motion is grossly normal. LVEF has not changed significantly since prior study. The right ventricle is borderline dilated. Grossly normal systolic function. The right ventricular systolic pressure is estimated at least 36 mmHg assuming a right atrial pressure of 15 mm Hg. RVSP is similar to prior study. Both atria are severely dilated. There is no significant valvular heart disease. Both MR and TR have decreased since prior study. The ascending aorta is mildly enlarged. Assessment & Plan Felix Perez is a 62 year old man with past medical history significant for ESRD on HD MWF who presented from dialysis due to hypotension and syncopal episode. Altered mental status (encephalopathy), new, improved. - Patient has exhibited signs of confusion and hallucinations in the last couple days. Improved today. - Suspect to be chronic and due to dementia. CT brain on admissions showed chronic small vessel ischemic changes and parenchymal volume loss. - Normal neurological exam and no signs of stroke or seizure. - Continue CIWA protocol. Continue Thiamine daily. - B12 and folate pending Chronic Atrial Fibrillation, not on anticoagulation, active and rate controlled. - Rate has been in 100-130s. Increase Metoprolol XL to 200mg daily. - CHADS2-VAS score of 2, but patient is not a candidate for anticoagulation due to alcoholism and high risk for falls. - Telemetry, no change to medical management. Sepsis, source unclear. POA. Resolved. - Suspect a possible cystitis or pyelonephritis but urine culture is negative. - Patient received empiric Cefepime and Vanco for 2 days. - No signs or symptoms of infections. - BP has been stable and map remains greater than 65. Lactic acidosis, POA, resolved. Right knee femoral condyle fracture, POA, active. - Orthopedics was consulted in the ED, but patient has not been seen. - Dr. Gardner was contacted and recommend a CT of the knee, which confirms the fracture as above. - Recommend nonweightbearing right lower extremity - Pain control with hydrocodone 5-10mg PRN - Nonweightbearing with the immobilizer and follow up in orthopedic clinic in 1- 2 weeks for follow-up as outpatient. - Keep the affected extremity elevated when possible. - Patient will require [facility] facility at discharge given his now weightbearing status. Pancytopenia, likely chronic, stable. - Based on values obtained from previous admissions, WBC and platelets appear to frequently be low - Possible etiologies include alcohol use, vitamin deficiencies, underlying infection or history of chronic infection - Monitor clinically Probable chronic anemia related to kidney disease, POA, stable. - Hemoglobin decreased to 6.8 today s/p transfuse 1 unit of PRBC. - We will follow CBC daily - Check B12 and Folate. - He was guaiac negative in the emergency department. Alcohol intoxication, POA, resolved. - Alcohol level of 355 on admission. - The patient is at high risk for alcohol withdrawal, will enact CISD protocol. - No signs or symptoms of withdrawal so far. - Continue Thiamine. Acute alcohol withdrawal syndrome, new and active. -The patient remains on the CIWA protocol and has had hallucinations. We will continue to follow clinically. End-stage renal disease, POA. - Continue with scheduled dialysis. Patient will have dialysis prior to discharge tomorrow. Hypokalemia and hypomagnesemia, resolved. - Continue to monitor electrolytes. Hypertension, POA and stable. - Follow clinically - Continue Metoprolol ER 200mg daily. Patient is full resuscitation, confirmed the time of admit Patient is admitted inpatient status, length of stay of over 2 nights is expected Discharge well until her discharge from [facility] for a rehabilitation stay given his nonweightbearing status for at least 2 weeks. PENG is working on coordinating with SNF for outpatient dialysis. Likely will be discharge tomorrow. Ok to be transfer off [facility]. Pain Evaluation: Adequate Pain Control GI Prophylaxis: H2 angela VTE Mechanical Devices: Intermittant Pneumatic CD Resuscitation Status: CPR: Attempt Resuscitation Attending Statement Patient seen and examined with house staff. Agree with all attached documentation. Angie Barker DO Jun 01, 2017 14:37 Arsh Flannery MD Jun 01, 2017 17:44
--- NOTE | 2017-06-01 15:00 | NUR ---
Dialysis note: 4 hr. Rx'd tx. 5 hr actual tx Net UF 2200 (subtracted 300 mL rinse, 300 mL PRBC) 2 - 15 g needles on left UA fistula QB 400 down to 350. PRBC 1 unit Pt c/o itching on forehead and neck 30 min after blood infusion started. Blood infusion stopped. Hospitalist contacted and rx'd Benadryl with instructions to wait for 30 min before beginning blood infusuion again. Benadryl given. Infusion paused. The pt stated that he is often itchy when blood is given and that the symptoms usually last about 1/2 hour. Blood infusion started again at a low pump speed, BP and temps monitored, and then pump speed increased. The tx time was extended so that blood infusion could be completed. Site clamped x 10 min and secured with SS, gauze and tape. Report given to primary RN, Ami, and pt returned to floor stable. Please see DTR for complete record of VS.
[2017-06-01] MEDS: Thiamine Inj 100 MG in Dextrose 5% 50 ML IV SCH (15:19)
[2017-06-01] MEDS: 0.9% Sodium Chloride 250 ML IV SCH (15:20)
[2017-06-01] MEDS: MeTOProlol XL 50 mg ER24 Tablet PO SCH (15:22)
[2017-06-01] MEDS: Multivit-Miner-Folic Acid-Iron Tablet PO SCH (15:23)
--- NOTE | 2017-06-01 16:09 | PCM.PNNEPH ---
Subjective Date of Service Jun 01, 2017 Subjective Patient continues to do well and is a bit more alert and interactive. His appetite is good and he is scheduled to be transferred to an extended care facility today. Exam Vital Signs Vital Sign - Last Date Time Temp Pulse Resp B/P Pulse Ox O2 Delivery O2 Flow Rate FiO2 06/01/17 15:11 37.6 105 16 122/71 99 Room Air Intake and Output 05/31/17 05/31/17 06/01/17 Cumulative From/Thru 15:00 23:00 07:00 05/27/17 14:20 - 06/01/17 06:17 Intake Total 800 ml 400 ml 8659 ml Output Total 1 ml 1871 ml Balance 799 ml 400 ml 6788 ml Intake Oral 800 ml 400 ml 3672 ml IV Total 4687 ml Packed Cells 300 ml Output Urine Total 870 ml Urine/Stool Mix 1 ml 1 ml Ultrafiltrate 1000 ml # Voids 3 1 10 # Bowel Movements 0 Exam HEENT examination is remarkable for pale sclera. Neck is supple without jugular venous distention. Lungs were clear though somewhat diminished. Heart was regular and rhythmical with a soft systolic murmur. Abdomen is soft without any tenderness rebound guarding masses or hepatosplenomegaly. Extremities not show any evidence of any clubbing, cyanosis, or edema. Skin turgor is good. Lab and Diagnostics Result Diagram: 06/01/1741406/[id number] X-Rays, CTs and MRIs Chest x-ray unremarkable Abdomen pelvis CT unremarkable Head CT unremarkable. Right knee x-ray reveals a probable medial femoral condyle nondisplaced fracture with a knee effusion Cardiac Echo Impressions Interpretation Summary Left ventricular size is at the upper limits of normal. The ejection fraction is estimated to be 60-65%. LV wall motion is grossly normal. LVEF has not changed significantly since prior study. The right ventricle is borderline dilated. Grossly normal systolic function. The right ventricular systolic pressure is estimated at least 36 mmHg assuming a right atrial pressure of 15 mm Hg. RVSP is similar to prior study. Both atria are severely dilated. There is no significant valvular heart disease. Both MR and TR have decreased since prior study. The ascending aorta is mildly enlarged. Plan Impression Impression #1 end-stage renal disease dialysis dependent #2 P.m. for dementia # 3 multifactorial anemia Recommendations #1 patient to be dialyzed today for 4 hours on above a max dialyzer and a 2 potassium bath, blood flow, 600 dialysate flow, 1 L of fluid and will take approximately 2-3 L of fluid off. He will also be given a l unit of packed blood cells. Odin Crowley DO Jun 01, 2017 16:09
--- NOTE | 2017-06-01 18:59 | NUR ---
Return from dialysis Pt returned from dialysis with 9/10 RLE pain. Received norco which pt states brought the pain down to a 7/10. Pt appeared comfortable and was in good spirits. Alert to self and place but unable to state the month or the year. Good appetite. A-fib 100s-110s. R IJ patent for blood draws.
[2017-06-02 03:10] VITALS: BP 137/96; PULSE 110; RESP 20; O2SAT 96
[2017-06-02] MEDS: HYDROcodone-APAP 5-325 mg Tablet PO PRN ×2 (03:54→13:25)
[2017-06-02 04:03] LABS: Mean Corpuscular Hemoglobin 33.1 pg (27.0-35.0); Mean Corpuscular Volume 105.7 fL (81-100)
--- NOTE | 2017-06-02 05:34 | NUR ---
pain repositioned pts leg splint, encouraged pt to elevated and ice leg pt refusing, vicodin given for pain relief
[2017-06-02] MEDS: Thiamine Inj 100 MG in Dextrose 5% 50 ML IV SCH (07:51)
[2017-06-02] MEDS: Heparin 5,000 Unit/mL Inj SUBQ SCH (07:54)
[2017-06-02] MEDS: Multivit-Miner-Folic Acid-Iron Tablet PO SCH (07:55)
[2017-06-02] MEDS: MeTOProlol XL 50 mg ER24 Tablet PO SCH (07:56)
[2017-06-02 08:30] VITALS: BP 133/96; PULSE 100; RESP 18; O2SAT 99
[2017-06-02] MEDS ORDERED: HYDR-4003 PO (09:37)
[2017-06-02] MEDS ORDERED: Thiamine PO (09:37)
[2017-06-02] MEDS ORDERED: METO-272 PO (09:37)
[2017-06-02 10:00] VITALS: PULSE 110
[2017-06-02] MEDS: 0.9% Sodium Chloride 250 ML IV SCH (11:26)
[2017-06-02 13:17] VITALS: BP 133/72; PULSE 90; RESP 15; O2SAT 90
--- NOTE | 2017-06-02 14:49 | NUR ---
Discharge Pt ate breakfast and dinner today. Had all of his morning medications. Took norco X1 for pain. Had some small smear BMs. Urinated around 100cc in the urinal. IJ was removed by IV therapy. IVs were removed. Telemetry leads were removed. Pt left with transport with all personal belongings.
--- NOTE | 2017-06-02 15:23 | NUR ---
Social Work Note: Discharge/Multidisciplinary Rounds Data& Assessment: Pt was discussed AM rounds, Per pt is medically ready to discharge to [facility] for rehab. Pt Felix Huston is a 62 year old male admitted on 05/27/2017 for sepsis and anemia. Per pt is medically improved and ready for discharge. PENG confirmed pt dialysis appointment in [facility] [place] for tomorrow at 8:00am. Jessie from [facility] also confirmed understanding of appointment. SW met with pt at bedside to confirm discharge plan and assess for any unmet needs. Pt confirmed plan to go to [facility] for rehab. SW offered to notify his son of his discharge, pt declined explaining he has already spoken with him. Pt is nonweight bearing on his foot, but is otherwise independent with his self care. Pt denies any other needs. No other MD orders or discharge needs identified. Pt D/C packet faxed. Jessie from [facility] arranged wheelchair transportation for this afternoon at 1:30pm. RN notified. All updated and agreeable to plan. Plan: Per pt is medically ready to discharge to [facility] for rehab via wheelchair van arranged by SNF. Pt denies any other needs. No other MD orders or discharge needs identified. All updated and agreeable to plan. AYESHA Brewer
--- NOTE | 2017-06-02 17:49 | PCM.DC.MED ---
Discharge Summary Date of Service Jun 02, 2017 Dates of Hospitalization Date of Hospital Admission May 27, 2017 at 17:57 Date of Discharge: Jun 02, 2017 Providers: Admitting Physician: Arsh Flannery MD Primary Care Physician: Spike Mckeon DO Attending Physician: Arsh Flannery MD Diagnosis at Time of Discharge Diagnosis at Time of Discharge Altered mental status (encephalopathy), new, active. Chronic Atrial Fibrillation, not on anticoagulation, active and rate controlled. Sepsis, source unclear. POA. Resolved. Lactic acidosis, POA, resolved. Right knee femoral condyle fracture, POA, active. Pancytopenia, likely chronic, stable. Acute on chronic anemia related to kidney disease, POA, stable. Alcohol intoxication, POA, resolved. Acute alcohol withdrawal syndrome, new and active. End-stage renal disease on dialysis, POA. Hypokalemia and hypomagnesemia, resolved. Hypertension, POA and stable. Consultations Orthopedics Nephrology Procedures XRay, CTs & MRIs Chest x-ray unremarkable Abdomen pelvis CT unremarkable Head CT unremarkable. Right knee x-ray reveals a probable medial femoral condyle nondisplaced fracture with a knee effusion Cardiac Echo Impression Interpretation Summary Left ventricular size is at the upper limits of normal. The ejection fraction is estimated to be 60-65%. LV wall motion is grossly normal. LVEF has not changed significantly since prior study. The right ventricle is borderline dilated. Grossly normal systolic function. The right ventricular systolic pressure is estimated at least 36 mmHg assuming a right atrial pressure of 15 mm Hg. RVSP is similar to prior study. Both atria are severely dilated. There is no significant valvular heart disease. Both MR and TR have decreased since prior study. The ascending aorta is mildly enlarged. Brief History This is a 62-year-old woman with known history of end-stage renal disease. He was due for dialysis today. He had a witnessed fall which may have been syncopal at which time his caregiver called 911. He was found to be hypotensive and was fluid resuscitated with 250 mg saline. He was brought to the emergency department. There he complained really only of feeling flulike symptoms for 2 days as well as having right knee pain. X-ray did reveal a right knee femoral condyle fracture and a splint was applied. The patient was afebrile but did have a profound lactic acidosis. He had a mild leukopenia as well. Chest x-ray and CT were unremarkable. He does have chronic diarrhea. He denies fevers or chills. He also denies dyspnea and had normal saturations and respiratory effort. He was treated empirically for possible sepsis with an unclear source. The patient does have a left arm fistula which has been used for several years. He has had a map of 55 in the ED after a second bolus of 250 mils of saline. At this point a right IJ is going to be placed in the emergency physician under ultrasound guidance. He denies any confusion. He does have alcohol on his breath andhaving 2 drinks today. He is unclear as to how much he drinks on a daily basis but denies withdrawal symptoms. Blood alcohol level is 355. Hospital Course Felix Perez is a 62 year old man with past medical history significant for ESRD on HD MWF who presented from dialysis due to hypotension and syncopal episode. Altered mental status (encephalopathy), new, improved. - Patient has exhibited signs of confusion and hallucinations in the last couple days. Improved today. - Suspect to be chronic and due to dementia. CT brain on admissions showed chronic small vessel ischemic changes and parenchymal volume loss. - Normal neurological exam and no signs of stroke or seizure. - Continue CIWA protocol. Continue Thiamine daily. - B12 and folate normal. Chronic Atrial Fibrillation, not on anticoagulation, active and rate controlled. - Rate has been in 100-130s. Increase Metoprolol XL to 200mg daily. - CHADS2-VAS score of 2, but patient is not a candidate for anticoagulation due to alcoholism and high risk for falls. - Telemetry, no change to medical management. Sepsis, source unclear. POA. Resolved. - Suspect a possible cystitis or pyelonephritis but urine culture is negative. - Patient received empiric Cefepime and Vanco for 2 days. - No signs or symptoms of infections. - BP has been stable and map remains greater than 65. Lactic acidosis, POA, resolved. Right knee femoral condyle fracture, POA, active. - Orthopedics was consulted in the ED, but patient has not been seen. - Dr. Gardner was contacted and recommend a CT of the knee, which confirms the fracture as above. - Recommend nonweightbearing right lower extremity - Pain control with hydrocodone 5-10mg PRN - Nonweightbearing with the immobilizer and follow up in orthopedic clinic in 1- 2 weeks for follow-up as outpatient. - Keep the affected extremity elevated when possible. - Patient will require detention facility at discharge given his now weightbearing status. Pancytopenia, likely chronic, stable. - Based on values obtained from previous admissions, WBC and platelets appear to frequently be low - Possible etiologies include alcohol use, vitamin deficiencies, underlying infection or history of chronic infection - Monitor clinically Probable chronic anemia related to kidney disease, POA, stable. - Hemoglobin decreased to 6.8 today s/p transfuse 1 unit of PRBC. - We will follow CBC daily - B12 and Folate normal. - He was guaiac negative in the emergency department. Alcohol intoxication, POA, resolved. - Alcohol level of 355 on admission. - The patient is at high risk for alcohol withdrawal, will enact CIWA protocol. - No signs or symptoms of withdrawal so far. - Continue Thiamine. Acute alcohol withdrawal syndrome, new and active. -The patient remains on the CIWA protocol and has had hallucinations. We will continue to follow clinically. End-stage renal disease, POA. - Continue with scheduled dialysis. Patient will have dialysis prior to discharge tomorrow. Hypokalemia and hypomagnesemia, resolved. - Continue to monitor electrolytes. Hypertension, POA and stable. - Follow clinically - Continue Metoprolol ER 200mg daily. Patient is full resuscitation, confirmed the time of admit Patient is admitted inpatient status, length of stay of over 2 nights is expected Discharge well until her discharge from [facility] for a rehabilitation stay given his nonweightbearing status for at least 2 weeks. SW is working on coordinating with SNF for outpatient dialysis. Likely will be discharge tomorrow. Ok to be transfer off [facility]. Exam Vital Signs (Last) Date Time Temp Pulse Resp B/P Pulse Ox O2 Delivery O2 Flow Rate FiO2 06/02/17 13:17 36.6 90 15 133/72 90 Room Air Exam General: Obese, Alert and Oriented to place and person. No distress. Fluent speech. Normal affect. HEENT: Normal skull. Normal nose and ears. Anicteric sclera, symmetric pupils. Oropharynx is unremarkable, no facial droop. Neck: supple, normal thyroid. No adenopathy. Lungs: are clear, normal effort rate. Heart: Irregular irregular, tachycardia without murmur, gallop, or rub. Abdomen: soft, nondistended or tender. Normoactive bowel sound. Extremities: free of pedal edema. Right knee very tender to palpation with mild joint effusion. No erythema or deformity. Left arm fistula. Good radial and pedal pulses. Skin: free of rash, lesions. No petechiae or ecchymosis. Neuro: Cranial nerves are grossly normal. No facial droop. Normal speech. Motor strength is normal in all extremities. Normal muscular tone. Test 05/27/17 15:10 05/27/17 15:45 05/27/17 20:11 05/28/17 01:15 Hemoglobin A1c 5.3% (4.8-5.6) Prealbumin 27mg/dL (20-40) Lipase 20U/L (13-60) Alcohols 355mg/dL (0-10) Hold Purple Top Tube Received (Received) Hold Blue Top Tube Received (Received) Hold [place] Top Tube Received (Received) Hold Vill[place]o Top Tube Received (Received) Urine Color Yellow (YELLOW) Urine Appearance Clear (CLEAR,HAZY) Urine pH 6.5 (5.0-8.0) Urine Specific [place] <1.005 (1.003-1.035) Urine Protein 100mg/dL (NEG,TRACE) Urine Glucose (UA) 100mg/dL (NEGATIVE) Urine Ketones Negativemg/dL (NEGATIVE) Urine Occult Blood Small (NEGATIVE) Urine Nitrite Negative (NEGATIVE) Urine Bilirubin Negative (NEGATIVE) Urine Urobilinogen Normalmg/dL (NORMAL) Urine Leukocyte Esterase Moderate (NEGATIVE) Urine RBC 3-10/hpf (0-2) Urine WBC 6-10/hpf (0-5) Urine Epithelial Cells Few/hpf (NONE-MOD) Urine Crystals Amorphous urates (NONE Urine Bacteria Many/hpf (NONE-FEW) Urine Hyaline Casts None/lpf (NONE) Urine Granular Casts None seen (NONE SEEN) Urine Waxy Casts None seen (NONE SEEN) Urine Red Blood Cell Casts None seen (NONE SEEN) Urine White Blood Cell Casts None seen (NONE SEEN) Urine Mucus None seen (None Seen) Urine Trichomonas None seen (NONE SEEN) Urine Yeast None (NONE SEEN) Urinalysis Comment None Urine Culture Reflexed Indicated Troponin T 0.193ug/L (0.0-0.011) Test 05/28/17 06:00 05/29/17 04:00 05/29/17 08:35 05/30/17 03:40 Phosphorus Level 5.3mg/dL (2.5-4.9) Procalcitonin 0.65ng/mL (0.00-0.08) Vancomycin Level Trough 23.3mcg/mL Random Vancomycin Level 9.1ug/mL Rx Lactic Acid Level 0.7mmol/L (0.4-2.0) Neutrophils (%) (Auto) 62.2% (40-74) Lymphocytes (%) (Auto) 22.2% (14-46) Monocytes (%) (Auto) 12.2% (4-12) Eosinophils (%) (Auto) 2.8% (0-5) Basophils (%) (Auto) 0.3% (0-3) Total Bilirubin 0.4mg/dL (0.0-1.2) Aspartate Amino Transf (AST/SGOT) 8U/L (0-50) Alanine Aminotransferase (ALT/SGPT) 6U/L (0-44) Alkaline Phosphatase 73U/L (25-160) Total Protein 5.6g/dL (6.4-8.4) Albumin 2.6g/dL (3.4-5.0) Test 05/31/17 09:48 05/31/17 09:58 06/01/17 04:15 06/02/17 04:00 Magnesium Level 1.7mg/dL (1.6-2.6) Vitamin B12 Level 620pg/mL (211-946) Folate 14.8ng/mL (>3.0) Sodium Level 138mEq/L (134-144) Potassium Level 4.0mEq/L (3.5-5.2) Chloride Level 98mEq/L (97-108) Carbon Dioxide Level 24mmol/L (18-29) Blood Urea Nitrogen 26mg/dL (8-27) Creatinine 6.65mg/dL (0.76-1.27) Estimat Glomerular Filtration Rate 9mL/min (>59) Glucose Level 104mg/dL (60-99) Calcium Level 8.1mg/dL (8.5-10.1) Iron Level 24ug/dL (35-150) Total Iron Binding Capacity 150ug/dL (250-450) Percent Iron Saturation 16%sat (15-50) Unsaturated Iron Binding 125.7ug/dL White Blood Count 3.5th/mm3 (3.8-10.1) Red Blood Count 2.45mil/mm3 (4.40-5.80) Hemoglobin 8.1g/dL (13.8-17.2) Hematocrit 25.9% (41.0-50.0) Mean Corpuscular Volume 105.7fL (81-100) Mean Corpuscular Hemoglobin 33.1pg (27.0-35.0) Mean Corpuscular Hemoglobin Concent 31.3% (32.0-37.0) Red Cell Distribution Width 18.9% (12.3-15.4) Platelet Count 90bil/L (150-400) Discharge Medications Discharge Medications ([Thiamine]) 100 MG TABLET 100 MG PO DAILY Prescribed by: ROVERTO BARRAGAN DO Folic Acid (Folic Acid) 1 Mg Tablet 1 MG PO DAILY (Reported) Metoprolol Succinate ER (Metoprolol Succinate ER) 50 Mg Tab.er.24h 200 MG PO DAILY Prescribed by: ROVERTO BARRAGAN DO Omeprazole (Omeprazole) 20 Mg Capsule.dr 20 MG PO MORNING (Reported) As needed Hydrocodone-Acetaminophen 5-325 mg (Hydrocodone-Acetaminophen 5-325 mg) 1 Each Tablet 1 TABLET PO Q6H PRN PRN For Mild Pain Prescribed by: ROVERTO BARRAGAN DO Miscellaneous Medications Furosemide (Furosemide) 80 Mg Tab 80 MG PO (Reported) Followup Plan Disposition: Home Discharge Diet: Renal Diet Discharge Activity: Limited until seen by PCP Patient Instructions - There was suspicion of infection at admission, but this was ruled out by negative workup. The low blood pressure that you experienced could be due to dehydration. Please stop drinking alcohol. - Resume the dialysis schedule at the senior care. - No change in your current medications. - nonweightbearing right lower extremity with the immobilizer. You will need to go to detention facility for this. - Pain control with hydrocodone 5-10mg Q6H as needed for pain. - Follow up in orthopedic clinic in 1-2 weeks for follow-up as outpatient. - Keep the affected extremity elevated when possible. - You were found to have anemia and received 1 unit of blood. You will need to have a CBC and BMP with Magnesium check in 3-4 days at the senior care. - Take a multivitamin and Thiamine daily. - I increased the Metoprolol dose to 200mg daily. Please take as directed. - Follow up with your doctor per discharge from senior care. - Go to the ER if you develop dizziness, headache, nausea, vomiting, one-sided weakness, slurred speech, or change in mental status. Follow-up Provider: Spike Mckeon DO Follow-up with PCP in: 2 weeks Provider: Dick Gardner MD Follow-up in: 1 week copies to: Spike Mckeon Ngochanh H DO Jun 02, 2017 17:48
== END 2017-06-02 15:00 | DRG 533 ==
LOC: SED 14:20 → CCU 17:57 → PCC 05-28 08:40
PROVIDERS: ADMIT Hospitalist; ATTEND Hospitalist
PROC: 02HV33Z Insertion of Infusion Device into Superior Vena Cava, Percutaneous Approach (ICD-10-PCS; principal; 2017-05-27)
PROC: 30233N1 Transfusion of Nonautologous Red Blood Cells into Peripheral Vein, Percutaneous Approach (ICD-10-PCS; 2017-05-28)
PROC: 5A1D00Z (ICD-10-PCS; 2017-05-28)
PROC: 5A1D00Z (ICD-10-PCS; 2017-05-29)
PROC: 5A1D00Z (ICD-10-PCS; 2017-06-01)
DX: S72.431A Displaced fracture of medial condyle of right femur, initial encounter for closed fracture (principal); N18.6 End stage renal disease; G93.40 Encephalopathy, unspecified; E87.2 Acidosis; I12.0 Hypertensive chronic kidney disease with stage 5 chronic kidney disease or end stage renal disease; F10.239 Alcohol dependence with withdrawal, unspecified; D61.818 Other pancytopenia; I95.9 Hypotension, unspecified; Y90.8 Blood alcohol level of 240 mg/100 ml or more; Z99.2 Dependence on renal dialysis; W05.0XXA Fall from non-moving wheelchair, initial encounter; Z87.891 Personal history of nicotine dependence; D63.1 Anemia in chronic kidney disease; E87.6 Hypokalemia; E83.42 Hypomagnesemia